=== PATIENT | female | born 1935 | race Caucasian/White ===

== ENCOUNTER 2017-05-26 09:06 | Emergency (ER) | payer MEDICARE, OTHER ==
[~2017-05-26] VITALS: Ht 157.5 cm; Wt 73.5 kg
[~2017-05-26 09:06] MED LIST: ADVIL200 MG PO; ALLEGRA180 MG PO; ENULOSE10 GM/15 M PO; HYDROCHLOROTHIA25 MG PO; ICAPS TABLET1 EACH PO; MARTINIC1 EACH PO; NORCO 7.5-3251 EACH PO; NUCYNTA100 MG PO; PRAVASTATIN SOD40 MG PO; VITAMIN D1000 UNI1 PO; VITAMIN E100 UNI1 PO; WELLBUTRIN SR150 MG PO; XARELTO10 MG PO; ZANTAC 7575 MG PO; ZESTRIL40 MG PO
--- OUTSIDE RECORDS SUMMARY | 2017-05-26 09:12 | XMS ---
Demographics + + + | Address | [address] | | | [place] [address] | + + + | Preferred Language | Unknown | + + + | Marital Status | Unknown | + + + | Sikhism Affiliation | Unknown | + + + | Race | Unknown | + + + | Ethnic Group | Unknown | + + + Author + + + | Author | [facility] | + + + | Organization | [facility] | + + + | Address | [address] [facility] [address] | | | [place] [phone] | + + + | Phone | | + + + Care Team Providers + + + + | Care Fender Finisher Name | Role | Phone | + + + + Unavailable | Unavailable | + + + + PROBLEMS +---------+ + + +--------+ + + | Type | Condition | ICD9-CM | [id number] | Onset | Condition | SNOMED | | | | Code | Code | Dates | Status | Code | +---------+ + + +--------+ + + | Problem | HTN | 401.9 | | | Active | [id number] | +---------+ + + +--------+ + + ALLERGIES Unknown Allergies SOCIAL HISTORY No smoking Hx information available PLAN OF CARE VITAL SIGNS MEDICATIONS Unknown Medications RESULTS No Results PROCEDURES No Known procedures IMMUNIZATIONS No Known Immunizations"
--- OUTSIDE RECORDS SUMMARY | 2017-05-26 09:12 | XMS ---
Demographics + + + | Address | [address] | | | [place] [address] | + + + | Preferred Language | Unknown | + + + | Marital Status | Unknown | + + + | Buddhist Affiliation | Unknown | + + + | Race | Unknown | + + + | Ethnic Group | Unknown | + + + Author + + + | Author | [facility] | + + + | Organization | [facility] | + + + | Address | [address] [facility] [address] | | | [place] [phone] | + + + | Phone | | + + + Care Team Providers + + + + | Care Manager Of Software Development Name | Role | Phone | + + + + Unavailable | Unavailable | + + + + PROBLEMS +---------+ + + +--------+ + + | Type | Condition | ICD9-CM | [id number] | Onset | Condition | SNOMED | | | | Code | Code | Dates | Status | Code | +---------+ + + +--------+ + + | Problem | HTN | 401.9 | | | Active | [id number] | +---------+ + + +--------+ + + ALLERGIES Unknown Allergies SOCIAL HISTORY No smoking Hx information available PLAN OF CARE VITAL SIGNS MEDICATIONS Unknown Medications RESULTS No Results PROCEDURES No Known procedures IMMUNIZATIONS No Known Immunizations"
[2017-05-26] MEDS ORDERED: ROBAXIN-750750 MG PO (09:28)
[2017-05-26] MEDS ORDERED: ULTRAM50 MG PO (09:29)
[2017-05-26] MEDS ORDERED: POTASSIUM CHLO10 MEQ PO (11:14)
--- NOTE | 2017-05-27 19:33 | EKG ---
[facility] [address] [place] [address] Signed Sinus rhythm with premature atrial complexes Low voltage QRS Borderline ECG When compared with ECG of 26-MAY-2017 09:36, (Unconfirmed) premature atrial complexes are now present Confirmed by BREE SHEA MD ([id number]) on 05/27/2017 7:33:14 PM Electronically Signed By: BREE SHEA MD 05/27/17 1933 PATIENT NAME: KERRY ST Electrocardiogram DATE OF : 39 PHYSICIAN: BREE SHEA MD REPORT #: [id number] REPORT IS CONFIDENTIAL AND NOT TO BE RELEASED WITHOUT AUTHORIZATION
--- NOTE | 2017-05-27 19:33 | EKG ---
[facility] [address] [place] [address] Signed Normal sinus rhythm Low voltage QRS Borderline ECG When compared with ECG of 29-JUL-2016 10:58, No significant change was found Confirmed by BREE SHEA MD ([id number]) on 05/27/2017 7:33:09 PM Electronically Signed By: BREE SHEA MD 05/27/17 1933 PATIENT NAME: KERRY ST Electrocardiogram DATE OF : 39 PHYSICIAN: BREE SHEA MD REPORT #: [id number] REPORT IS CONFIDENTIAL AND NOT TO BE RELEASED WITHOUT AUTHORIZATION
== END 2017-05-26 11:40 | disposition home or self-care (01) ==
LOC: ED 09:06
PROC: 0T9B70Z Drainage of Bladder with Drainage Device, Via Natural or Artificial Opening (ICD-10-PCS; principal; 2017-05-26)
DX: R41.0 Disorientation, unspecified (principal); E87.6 Hypokalemia; Z87.891 Personal history of nicotine dependence; Z88.5 Allergy status to narcotic agent; Z79.899 Other long term (current) drug therapy
CPT/HCPCS: 36415; 51701; 70450; 71045; 80053; 81001; 82140; 83735; 84484; 85025; 85610; 85730; 93005; 93010; 96360; 96361; 99284; J7030

== ENCOUNTER 2017-05-28 12:38 | Inpatient (IN) | payer MEDICARE, OTHER ==
[~2017-05-28] VITALS: Ht 157.5 cm; Wt 69.6 kg
[~2017-05-28 12:38] MED LIST changes: +POTASSIUM CHLO10 MEQ PO; +ROBAXIN-750750 MG PO; +ULTRAM50 MG PO
--- NOTE | 2017-05-28 16:23 | NUR ---
RECEIVED REPORT VIA TELEPHONE FROM TIMO MCKNIGHT IN ED. ALL QUESTIONS ANSWERED.
--- NOTE | 2017-05-28 17:36 | NUR ---
attempted IV 8 times with no success between several nurses. hospitalist notified. gave approval to attempt IV in dorsal bilat feet. if unsuccessful will notify hospitalist.
--- NOTE | 2017-05-28 17:37 | NUR ---
pt counting or making inappropriate comments frequently. only oriented to self. follows directions.
--- NOTE | 2017-05-28 17:38 | NUR ---
PT VERY CONFUSED. UNABLE TO GET IV ACCESS IN UPPER EXTREMITIES. HOSPITALIST AWARE. FOLLOWS SOME DIRECTIONS. LICKING SELF. BED ALARM ON. WILL NEED TO BE 1:1 PATIENT.
--- NOTE | 2017-05-28 18:03 | NUR ---
IV IN LEFT OLVERA PLACED BY ERINN MCKNIGHT. ALFRED BARRETO SITTING 1:1 WITH PATIENT. EATING DINNER NOW.
--- NOTE | 2017-05-28 18:40 | NUR ---
took pt to the BR. DO NOT GIVE PT TP SHE RIPS IT UP AND PUTS IT IN HER UNDERWEAR. GOT PT COCOLATE PUDDING AND SHE LIKES ICE WATER.
--- NOTE | 2017-05-28 18:42 | NUR ---
pt up to bathroom with CORONER'S JUROR. fixated on cleaning sink. redirected to bed and TV on. 1:1 staffing with patient continues. updated hospitalist.
--- NOTE | 2017-05-28 19:00 | NUR ---
BEDSIDE REPORT RECEIVED FROM JUAN LUIS NELSON. PT NOTED TO BE IMPULSIVE, BED ALARM VERIFIED ON, IVF INFUSING IN LEFT OLVERA WNL, COVERED IN GAUZE. PT IS SLEEPING AT THIS TIME, LIGHTS OFF IN ROOM, EYES CLOSED, RR 20, BREATHING NON-LABORED. PT WILL BE UNDER CLOSE OBSERVATION BY RN FOR SAFETY.
--- NOTE | 2017-05-28 19:28 | NUR ---
IN PT ROOM MONITORING PT, PT CONTINUES TO SLEEP, AWAKENS AT ONE POINT, REACHING ARMS STRAIGHT OUT, GRASPING FOR IV TUBING, MOVED TUBING OUT OF REACH. PT BACK TO SLEEP ON LEFT SIDE, PT COVERED ENTIRE HEAD WITH BLANKETS, RR 18, BREATHING IS NON-LABORED. LIGHTS OFF IN ROOM.
--- NOTE | 2017-05-28 21:35 | NUR ---
IN PT ROOM FOR CLOSE OBSERVATION. ASSISTED PT TO RESTROOM WITH STANDBY ASSIST, PT GAIT UNSTEADY, GRASPS FOR THINGS TO HOLD ONTO. PT FOLLOWED INSTRUCTIONS APPROPRIATELY, NON-CODING TEAM LEAD SOCKS APPLIED. PT IS ORIENTED TO PERSON, PLACE, NOT TO DATE. PT ABLE TO RECOLLECT TAKING TOO MANY MEDICATIONS, NOT FEELING LIKE HER SELF, STATES THAT HER POTASSIUM LEVEL WAS OFF AND SHE DID NOT HAVE ENOUGH "LIQUIDS" FOR REASON THAT SHE IS ADMITTED. PT MAKING INNAPPROPRIATE COMMENTS SUCH "I'M READY TO HAVE SEX, WE'RE ALL HORNY HERE". REORIENTED TO SITUATION AND CARE WE ARE PROVIDING. PT'S LUNGS SOUND CLEAR THROUGHOUT ALL LOBES. IV SITE INFUSING WNL, WRAPPED IN GAZE NO REDNESS, SWELLING NOTED AT INSERTION SITE. BOWEL TONES ARE ACTIVE, PT HAD SMALL SMEAR. ADEQUATE URINE OUTPUT. PT INSISTED ON CLEANING ELSY AREA MULTIPLE TIMES. LOTION APPLIED TO BACK BY RN. SCAB NOTED ON LEFT ELBOW, PT SCRATCHING AT SCAB, ALLEVYN DRESSING APPLIED. PT NOW BACK IN BED, BED ALARM IN PLACE. PT GIVEN SIPS OF WATER. RN WILL CLOSELY OBSERVE PT IN ROOM FOR SAFETY.
--- NOTE | 2017-05-28 22:06 | NUR ---
PT LYING IN BED, STATES SHE WOULD LIKE COFFEE. RN ASKED PT WHAT TIME IT WAS, PT STATES "8 AM". PT REORIENTED TO CURRENT TIME OF DAY, STATES SHE WOULD "LIKE WATER AND TO GO TO SLEEP THEN." LIGHTS OFF IN ROOM. PT CONTINUES TO SPEAK, COUNTING, TALKING ABOUT DR. BAH, DOSES OF MEDICATIONS. CONTINUES TO LICK FINGER, HANDS, RUBBING HANDS IN HAIR AND ON FACE AFTER LICKING. RN CLOSELY OBSERVING PT FOR SAFETY, BED ALARM SET, IVF W K INFUSING AT 200 ML/HR.
--- NOTE | 2017-05-28 22:27 | NUR ---
PT CONTINUING TO LICK, ASKED PT IF SHE NEEDED SOMETHING MORE TO DRINK, STATES "MY MOUTHS DRY." LEMON GLYCERIN SWAB GIVEN TO PT TO USE. PT STATES "MOUTH FEELS MUCH BETTER". PT NOW SLEEPING, EYES CLOSED, RR 18 BREATHING EQUALLY BILATERALLY, IVF INFUSING, BED ALARM IN PLACE.
--- NOTE | 2017-05-28 23:33 | NUR ---
PT SLEEPING, RR 20, IVF W K INFUSING AT 125 ML/HR. CLOSE OBSERVATION BY RN FOR PT SAFETY, BED ALARM SET.
--- NOTE | 2017-05-29 00:26 | NUR ---
PT CONTINUES TO SLEEP, EYES CLOSED, RR 16 AT THIS TIME, IVF INFUSING, CLOSE MONTIORING BY RN, BED ALARM IN PLACE.
--- NOTE | 2017-05-29 02:04 | NUR ---
IN PT ROOM FOR ASSESSMENT, PT DROWSY, SLIGHTLY AWAKENS TO VOICE, THEN BACK TO SLEEP. LUNGS CLEAR THROUGHOUT ALL LOBES, BOWEL TONES ACTIVE. IV SITE FLUSHED, WNL IVF W K INFUSING IN LEFT OLVERA AT 125 ML/HR. PT IMMEDIATELY BACK TO SLEEP AFTER ASSESSMENT, RR 18, 94% ON ROOM AIR. ATTENDS IN PLACE. CALL LIGHT IS IN REACH, BED ALARM SET. RN CLOSELY OBSERVING PT FOR SAFETY.
--- NOTE | 2017-05-29 02:50 | NUR ---
PT ATTEMPTING TO EXIT BED WITHOUT ASSISTANCE, EDUCATED PT, PT FOLLOWS COMMANDS, DOES NOT STAND UNTIL RN NEXT TO PT. PT IS VERY WEAK UPON AWAKENING, 2PA WITH GARBAGE TRUCK DISPATCHER AUGUST TO RESTROOM. PT HAD 200 ML VOID. PT DIAPHORETIC, SHEETS, GOWN CHANGED. IVF CONTINUES TO INFUSE WNL IN LEFT OLVERA. PT GIVEN SIPS OF WATER. PT IS NOW ALERT AND ORIENTED TO PERSON, PLACE, AND DATE. NOT ORIENTED TO EVENT. PT IS APPROPRIATE AT THIS TIME, ASKING QUESTIONS REGARDING REASON FOR VISIT, REMAINS LETHARGIC, EDUCATION PROVIDED. BED ALARM SET, CLOSE OBSERVATION BY RN.
--- NOTE | 2017-05-29 04:00 | NUR ---
ASSISTED PT TO RESTROOM FOR 350 ML VOID, PT GAIT UNSTEADY, AMBULATES WITH SBA, MINIMAL ASSIST AT THIS TIME. BACK TO BED, BED ALARM IN PLACE, RN IN ROOM FOR CLOSE OBSERVATION, IVF INFUSING WNL. PT GIVEN DRINKS OF WATER, STATES "I'M READY TO GO BACK TO SLEEP NOW".
--- NOTE | 2017-05-29 04:54 | NUR ---
PT RESTLESS, MOVING AROUND IN BED, PULLING AT GAUZE COVERING IV. EDUCATED PT ON IVF INFUSION, POTASSIUM. PT VERBALIZED UNDERSTANDING, DOES NOT WANT "ANY MORE BRUISES" WITH A NEW IV. IVF INFUSING WNL. CLOSE MONITORING OF PT BY RN, BED ALARM SET.
--- NOTE | 2017-05-29 05:41 | NUR ---
ASSISTED PT TO RESTROOM FOR 300 ML VOID. PT AMBULATED FAIR WITH SBA, GAIT UNSTEADY. PT LICKING FINGERS AND RUBBING FACE, GIVEN WET WASH CLOTH. PT DISCONTINUES LICKING FINGERS. PT IS PASSING GAS. ASSISTED PT BACK TO BED, ASSESSMENT COMPLETE. LUNGS CLEAR THROUGHOUT ALL LOBES, HR REGULAR, CSM INTACT. IV FLUID CONTINUES TO INFUSE WNL. PT STATES SOME TENDERNESS WITH PALPATION IN RLQ OF ABDOMEN, ABDOMEN IS SOFT, BOWEL SOUNDS ACTIVE X 4. PT IS RESTLESS, IN BED, IMMEDIATELY STATES "I FEEL LIKE I NEED TO PEE, BUT NOT SURE." PT GIVEN WARM BLANKET. RN IN ROOM FOR CLOSE OBSERVATION, BED ALARM IN PLACE.
--- NOTE | 2017-05-29 05:59 | NUR ---
PT RESTLESS FOR MOST OF NIGHT, UNABLE TO GET COMFORTABLE. IMPULSIVE REGARDING AMBULATION AND REACHING FOR SUPPORT WELL GETTING OUT OF BED. PT VERY LETHARGIC, REQUIRING 1PA WITH AMBULATION. PT IS ALERT, NOT ORIENTED TO EVENT, IS ORIENTED TO PERSON, PLACE, AND DATE. CONTINUES TO LICK HANDS AND RUB FACE, CLEANS BODY EXCESSIVELY WITH HANDS AND WASH CLOTHS OR WIPES WHEN SUPPLIED. PT IS COOPERATIVE, FOLLOWS COMMANDS WELL. IVF INFUSING LEFT OLVERA WNL THROUGHOUT SHIFT. PT HAS BEEN REORIENTED TO LEAVING GAUZE, IV IN PLACE MULTIPLE TIMES. VOIDING QUANTITY SUFFICIENT.
--- NOTE | 2017-05-29 06:17 | NUR ---
PT LYING IN BED, STATES "HEY, THERES A COW OUT THERE AND COWS HAVE CALVES, AND PIGS HAVE PIGLETS." PT IS DROWSY, SPEECH IS GARBLED. LIGHTS OFF IN ROOM. PT COVERED UP, ENCOURAGED PT TO REST. IVF INFUSING AT 125 ML/HR. BED ALARM SET, RN REMAINS IN ROOM FOR CLOSE OBSERVATION.
--- NOTE | 2017-05-29 07:00 | NUR ---
REPORT GIVEN FROM BRADY MCKNIGHT. PATIENT RESTING IN BED. INTRODUCED TO PATIENT. STEVENNET AT THE TIME OF REPORT WAS WASHING AND REWASHING FACE. INFORMED PATIENT THAT I WOULD BE HER NURSE TODAY. PATIENT AGREED AND WAS PLEASANT AT THIS TIME.
--- NOTE | 2017-05-29 07:33 | NUR ---
PATIENT STATED THAT SHE NEEDED TO GO TO THE BR. PATIENT WAS A ONE ASSIST TO EDGE OF BED. PATIENT WHILE SITTING ON EDGE OF BED WAS ABLE TO TELL ME HER NAME, MONTH, AND YEAR. SHE WAS ABLE TO TELL ME THAT SHE WAS AT THE HOSPITAL IN [facility]". PATIENT STATING "SHE WAS HER DUE TO THE DOCTOR GIVING HER TOO MUCH POTASSIUM AND THAT HE WHY SHE IS CRAZY AT THIS TIME". PATIENT ASSISTED TO THE BR WITH ONE ASSIST. VOIDING CLAR YELLOW URINE. PATIENT VERY INTERESTED IN WASHING SELF. ASSISTED TO THE SKIN FOR MORNING CARES. TEETH BRUSHED. HAIR COMBED AND FACE WASHED. ASSISTED TO THE CHAIR. PATIENT SET UP TO WATCH TV AND DRINK COFFEE IN CHAIR. ORDERED BREAKFAST.
--- NOTE | 2017-05-29 08:00 | NUR ---
PATIENT IS A ONE ON ONE, RN IN ROOM. WHITEBOARD UPDATED, ROOM TIDIED.
--- NOTE | 2017-05-29 08:36 | NUR ---
PATIENT SAT IN THE CHAIR AND TOLERATED 100 PERCENT OF BREAKFAST. ASSISTED TO BR AFTER BREAKFAST. PT VOIDED AND HAD SMALL BM. PATIENT WANTITNG TO PLACE WET TOILET PAPER IN ATTENDS. HAD TO CONTINUE TO REINFORCE THAT WE DONT NEED TO DO THAT HERE. ASSISTED TO BED. PATIENT CONTINUING TO BE UNSTEADY ON FEET, BUT TOLERATING A 1 PERSON ASSIST.
--- NOTE | 2017-05-29 08:47 | NUR ---
PATIENT RESTING IN BED. RR EVEN AND UNLABORED. PATIENT FEEL ASLEEP VERY QUICKLY. PATEINT UPDATED ABOUT GIVING NEW ORDER FOR IV MAGNESSIUM. PATIENT STATING OKAY AND THEN WENT BACK TO SLEEP. IV MAG STARTED. FLUSHED L OLVERA IV. FLUSHING WNL.
--- NOTE | 2017-05-29 09:13 | NUR ---
PATIENT CONTINUE TO WIPE FACE AND EARS WITH WET WIPES. STATING, " I HAVE TO CLEAN SELF BECAUSE THE INFECTION. " IF SHE DOES NOT HAVE WIPES IN HER HANDS TO WASH FACE PATIENT LICKS HER FINGERS AND WIPES FACE.
--- NOTE | 2017-05-29 09:45 | NUR ---
mehdi continues to wash face. talking around about living in [place]. reminding patient to not lick herself. patient is becoming more confusing and unable to state where she was or the date.
--- NOTE | 2017-05-29 10:16 | NUR ---
patient enjoys washing her face. easy to redirect
--- NOTE | 2017-05-29 11:11 | NUR ---
magnessium finished. patient tolerated well. iv flushed. tolerated flush. patient assisted to the br. patient voided and had small soft bm. patient ambulated in the cortes with stby assist and walker. tolerated well. needed frequent direction. pateint wanted to go into other patients rooms. asking " where is norm" stating " i am hotter than a firecracker" " i need norm" [facility] attempt to re[facility].
--- NOTE | 2017-05-29 11:37 | NUR ---
rounded with dr. hackett. plan to given another dose of seraqueal. patient oriented to self and location. unable to state year or that she was at the hospital. warm blanket given to patient. patient [place] snacks given to patient.
--- NOTE | 2017-05-29 12:35 | NUR ---
family in room. family brought in medication pharmacy brought to room to assist in helping with med list and reaction.
--- NOTE | 2017-05-29 13:30 | NUR ---
FAMILY LEFT. ASSISTED BACK TO BED WITH A ONCE ASSIST AND WALKER. PLACED IN BED. BED ALARM IN PLACE.
--- NOTE | 2017-05-29 14:36 | NUR ---
patient assisted to the br. patient voided. taking a lot of encouragement to get out of bathroom. patient stating that she was needing to cover everything with water. attempting to wipe everything down with wet paper towel. assisted patient in ambulate in the cortes. patient was calling out in the cortes for norm. patient saying in appropriate things. assisted back to room. patient told that she was being inappropriate and she just laughed. assisted back to bed. patient agreed that she needed to take a nap. patient continues to wipe face with wet cloth. talking about random things. counting. and continuing to be hypersexual. cont to attempt to reorient.
--- NOTE | 2017-05-29 15:46 | NUR ---
patient assisted to the br. unable to sleep. talking randomly. continue to wash self with cloth. patient given fresh water.sat up in bed. patient keeps eyes closed but does not stop moving. pt c/o being cold and then hot. flushed l jiménez iv. flushing well. cont to be sl
--- NOTE | 2017-05-29 17:27 | NUR ---
PATIENT ASSISTED TO THE CHAIR FOR DINNER. TOLERATING TRANSFER WITH A STBY ASSIST AND WALKER. NEEDING DIRECTION. PATIENT STATING SHE IS SO HUNGERY. NEEDING REMINDED TO SLOW DOWN WHILE EATING. SON CAME INTO SAY TO PATIENT. FOR DINNER AND ASSESSMENT PATIENT WAS ORIENTED TO SELF, AND LOCATION. SHE KNEW SHE WAS IN THE HOSPITAL IN [place]. PATIENT WHILE SITTING IN THE CHAIR HAS STOPPED WITH THE WASHING OF HER FACE. PATIENT ATTEPTING TO ASK DIETARY STAFF TO KISS HER. REMAINS HYPERSEXUAL WITH ANY MALE WORKER. DOES BETTER WITH FEMALE STAFF
--- NOTE | 2017-05-29 17:35 | NUR ---
PATIENT HAS BEEN A 1:1 ALL DAY. CONT. TO WASH SELF WITH WET CLOTH OR BABY WIPE. IF PT HAS WET CLOTH TO WASH HERSELF SHE DOES NOT LICK. UP IN CHAIR FOR ALL MEALS. AMBULATED MULTIBLE TIMES IN SPRINGER. PATIENT NEEDS CONSTANT DIRECTION WHILE IN SPRINGER AND IN ROOM. TOLERATING 100 PERCENT OF ALL MEALS. VOIDING WELL. HAD MULTIPLE BMS TODAY. PATIENT ORIENTATION CHANGES. THIS MORNING MORE ORIENTED THAN THIS EVENING. CAN TELL ME HER NAME AND LOCATION. CONTINUES TO BE BE FIXATED ON HYPERSEXUAL LANGUAGE.
--- NOTE | 2017-05-29 18:35 | NUR ---
PATIENT FINISHED 100 PERCENT OF DINNER. SITTING IN CHAIR. WASHING FACE WITH WET CLOTH. WATCHING TV AT THIS TIME. CHAIR ALARM IN PLACE.
--- NOTE | 2017-05-29 18:54 | NUR ---
PATIENT ASSISTED TO THE BR. TOLERATED WELL ASSISTED BACK TO BED. PATIENT WHILE IN THE BR. WASHED FACE, BRUSHED TEETH, AND DID A SMALL BED BATH. PATIENT DOING ALL CARES HERSELF. ASSISTED BACK TO BED WITH BED ALARM ON.
--- NOTE | 2017-05-29 19:46 | NUR ---
RECIEVED REPORT FROM BERTHA MCKNIGHT. PT AT HIS TIME WAS 05/16. PT WAS ABLE TO STATE NAME, DATE, AND WHERE SHE WAS. DENIES ANY NEEDS AT THIS TIME. PT IS A STAND BY ASSSIST AT THIS TIME. [facility] 05/16 AT BEDSIDE.
--- NOTE | 2017-05-29 21:02 | NUR ---
PT WALKED ONE LAP AROUND MS USING A WALKER. PT ASSISTED BY HAND LAMINATOR.
--- NOTE | 2017-05-29 21:24 | NUR ---
PT DROWSY IN BED. CONTINUALY CLEANING FACE WITH RAG. PT WAS DISORIENTED TO TIME STATIN," SHE WAS 20 AND IT WAS 1930." PT IS RAMBLING. NO NEEDS AT THIS TIME GAVE. SEROQUIL FOR BEDTIME.
--- NOTE | 2017-05-29 23:23 | NUR ---
PT IS SLEEPING IN BED. RESPITRATIONS EQUAL AND UNLABORED. VISIBLE FROM NURSES STATION. CALL LIGHT WITHING REACH.
--- NOTE | 2017-05-30 00:53 | NUR ---
PT EYES CLOSED AND APPEARS TO BE SLEEPING. RESIRATIONS EQUAL AND UNLABORED. PT LAYING ON BACK COVERED UP IN BED. CALL LIGHT WITHIN REACH. PT VISABLE FROM NURSES STATION. NO NEEDS AT THIS TIME.
--- NOTE | 2017-05-30 02:15 | NUR ---
pt appears to be asleep. respirations equal and unlabored. covered up. call lgiht withing reach. visable from nursing station.
--- NOTE | 2017-05-30 03:13 | NUR ---
PT ASSISTED TO BATHROOM. WARMING MEASURES APPLIED X2. PT NOW SLEEPING.
--- NOTE | 2017-05-30 04:00 | NUR ---
pt sleeping. rr wnl. call light within reach. visible from nursing station.
--- NOTE | 2017-05-30 06:16 | NUR ---
PT SLEPT THROGHOUT THE NIGHT. UP @ 0600. STILL DISORIENTED TO TIME AND SITUATION. SEXTUAL AND INAPROPRIATE TALK. SBA WITH FWW. REGULAR DIET. 1 ON 1.
--- NOTE | 2017-05-30 07:15 | NUR ---
RECIEVED BEDSIDE REPORT FROM JUAN LUIS RAY. PT IN BED, AWAKE, AWARE THAT SHE IS IN [facility]. SPITTING ON HANDS AND RUBBING SPIT ON ARMS AND HANDS. MARY LOU UP IN ROOM WITH PT 1:1, REDIRECTED FROM THIS ACTIVITY MULTIPLE TIMES, OFFERED WET WASHCLOTH, PT USED TO CLEANSE HANDS AND ARMS. PT ALSO OFFERED LOTION, WHICH SHE APPLIED TO HANDS AND ARMS.
--- NOTE | 2017-05-30 08:47 | NUR ---
FRESH ICE WATER SET UP FOR BRK. COFFEE. GAVE A SHOWER. TOOK PT FOR A WALK. PT WILL NOT STOP LICKING HERSELF. ALSO SHE WONT STOP CALLING PEOPLE A SHMUCK.
--- NOTE | 2017-05-30 09:18 | NUR ---
TALKED WITH PT DAUGHTER TRISTIN ABOUT HER MOTHER AND WHAT THEY WANTED TO DO. WE SET UP TIME TO MEET AT 10 DENIS TO DISCUSS THE PLAN OF CARE WITH HER SHE FEELS HER MOTHER IS NOT ABLE TO RETURN HOME AGAIN.
--- NOTE | 2017-05-30 09:44 | NUR ---
TOOK PT TO BR. TOOK PT ON A WALK WITH HERMINIO RATLIFF. AND WE WENT TO THE PT ROOM PT IS A LITTLE TIRED NOW SO SHE IS RESTING IN BED.
--- NOTE | 2017-05-30 10:16 | NUR ---
PT IN BED, EYES CLOSED, CONTINUES TO LICK FINGERS AND HANDS AND WIPE THE SALIVA ON THESE ONTO HER FACE, EARS, ARMS DESPITE ATTEMPTS AT VERBAL REDIRECTION, DISTRACTION, AND PROVIDING ALTERNATIVES. MARY LOU SIMON IN ROOM WITH PT 1:1 STAFF.
--- NOTE | 2017-05-30 10:38 | NUR ---
MET WITH PT DAUGHTER TRISTIN AND WITH PTS SON MANFRED AND HIS JOSEE. PT WAS IN ROOM ATTEMPTING TO REMOVE HER CLOTHING AND RUBBING HERSELF ALL OVER. MAKING INAPPROPRIATE GESTURES AND VERBAGE. TALKING TO THE ADULT CHILDREN OF THIS PT AND THE SON STATES THAT WE BROUGHT MOM TO THE ER BECAUSE SHE WAS THREATENING ME--SHE SAID SHE WAS GOING TO KILL ME. TOLD ME SHE HAD GIVEN MY DOG A PILL THAT WAS GOING TO KILL IT. AND REAL RECENTLY HER OWN DOG HAD - NO ONE AWARE OF THOSE CIRCUMSTANCES. WE TALKED FOR A LITTLE ABOUT THE PT ABILITY TO PAY FOR PLACEMENT IN A FACILITY THAT DOES NOT ACCEPT MEDICARE. THEY SAID SHE HAS NO MEANS TO PAY IF MEDICARE DOESN'T COVER AND HER [employer]IG[employer] DOESN'T PICK IT UP. SO WE TALKED ABOUT GETTING THE PAPERWORK GATHERED UP TO CHECK HER ELIGIBILTY FOR MEDICAID.
--- NOTE | 2017-05-30 11:19 | NUR ---
PT SITTING UP IN RECLINER. TAHIR BE, REMOTE ADVISOR, AND PT'S SON AND DAUGHTER IN ROOM, DISCUSSED PLAN OF CARE FOR PT. PT REMAINS DISORIENTED, AND CONTINUES TO REPETATIVELY LICK FINGERS AND WIPE SALIVA ON FACE, ARMS, EARS, GROIN AREA. MARY LOU SIMON IN ROOM WITH PT 1:1, IS ATTEMPTING TO REDIRECT, AND DISTRACT FROM THIS ACTIVITY.
--- NOTE | 2017-05-30 11:21 | NUR ---
TOOK PT TO BR. 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 THEN SHE PUTS HER FINGER IN HER MOUTH AND THEN INTO HER VAGINA THEN BACK IN HER MOUTH. I AM TRYING TO WIPE HER FINGERS EVERY TIME. PT IS STATING SHE IS VERY TIRED AND HAS HER EYES CLOSED THE WHOLE TIME INLESS YOU TELL HER TO OPEN THEM. BUT SHE WILL NOT SLEEP WHEN SHE IS IN THE BED. KEEPS LICKING HERSELF.
--- NOTE | 2017-05-30 13:22 | NUR ---
NOTED DOCUMENTED BP OF 182/70. THIS RN TOOK MANUAL BP, 170/68. PT LAYING IN BED WITH EYES CLOSED, BUT AWAKE, STILL LICKING FINGERS, AND RUBBING THEM ON HER FACE.
--- NOTE | 2017-05-30 13:25 | NUR ---
TALKED WITH Innovega ABOUT THIS PT, WITH REGARD TO HER THREATS TO HER SON. THEY ARE SENDING A RESOURCE ROOM TEACHER UP HERE TO TALKE WITH PT.
--- NOTE | 2017-05-30 13:58 | NUR ---
PT HAS RUBBED AND PUT SLIVA ON HER FACE SO MUCH THAT SHE NOW HAS A SOAR IN FRONT OF HER LEFT EAR. PT STATED THAT HER FACE IS BURNNIG WE HAVE BEEN ALTERNATING WASHCLOTH, WIPES, LOTION AND THEN NOTHING. BUT WHEN SHE HAS NOTHING TO DO WITH HER HANDS SHE SPITS ON THEM AND THEN RUBBS THEM ALL OVER HER FACE AND BEHIND HER EARS.
--- NOTE | 2017-05-30 14:33 | NUR ---
TOOK PT TO THE BR.
--- NOTE | 2017-05-30 14:34 | NUR ---
TOOK PT ON A WALK 3 TIMES AROUND MS.
--- NOTE | 2017-05-30 14:38 | NUR ---
[facility] HOD CARRIER HERE TALKING WITH MYSELF AND DR ANAYA AND SOON TO BE PT.
--- NOTE | 2017-05-30 15:20 | NUR ---
YAJAIRA DAVID COUNTER TOP ASSEMBLER WAS IN TO ASSESS PT, AND REQUESTED RECORDS FOR PLACEMENT IN A GERIATRIC PSYCH FACILITY. THIS RN VERRIFIED WITH TAHIR Chatterjee PAYROLL MANAGER THAT IT WAS OK TO GIVE JUAN A RANDALL THE REQUESTED RECORDS. TAHIR STATED THAT IT WAS OK TO GIVE THE REQUESTED RECORDS FOR PLACEMENT PURPOSES. THIS RN GAVE YAJAIRA DAVID COUNTER TOP ASSEMBLER REQUESTED RECORDS: HISTORY AND PHYSICAL, LAB AND IMAGING REPORTS, EMERGENCY ROOM REPORT.
--- NOTE | 2017-05-30 16:29 | NUR ---
PT IN BED, FAMILY AT BEDSIDE, WELL ALFRED, PRECISION ASSEMBLER BENCH. PT DENIED PAIN. DENIED NEEDS AT THIS TIME. REMAINS DISORIENTED TO TIME, DATE, SURROUNDINGS, PLACE.
--- NOTE | 2017-05-30 16:51 | NUR ---
HELPED PT TO THE BR. SBA. GAUDENCIO IN PT SAID PT DID NOT NEED A WALKER. BUT I HAVE BEEN USING IT TO HELP WITH WALKING IN AROUND MS. PT IS VERY TIRED BUT WILL NOT STOP TAKING TO LET HERSELF GO TO SLEEP.
--- NOTE | 2017-05-30 17:23 | NUR ---
Medications reconciled using RX records and family interview
--- NOTE | 2017-05-30 18:00 | NUR ---
PT HAS BEEN DISORIENTED THROUGHOUT SHIFT, WITH FREQUENT REPETATIVE BEHAVIORS, INCLUDING LICKING FINGERS AND SMEARING SALIVA ON HER BODY, ESPECIALLY HER FACE. PT ALSO COUNTED REPETATIVELY, AND MADE SEXUAL COMENTS TO STAFF. PT DISORIENTED TO PLACE, EVENTS, DATE, SURROUNDINGS AT TIMES, AND HER . PT UP WITH 1 PERSON ASSIST. AT TIMES REQUIRES REDIRECTION TO LEAVE HOSPITAL GOWN. WAS SEEN BY [facility] CRISIS COUNSELOR THIS SHIFT. HAD 2 BOWEL MOVEMENTS THIS SHIFT. HAS DENIED PAIN THROUGHOUT SHIFT.
--- NOTE | 2017-05-30 19:44 | NUR ---
RECEIEVED REPORT FROM THERESA, PT IS A 1-1 AT THIS TIME. MAKING NOHEMI STATMENTS SUCH "MAGDALENA GET IN HERE I'M HOTTER THAN A FIRECRACKER." PT IS SITTING IN CHAIR RUBBING LOTION ON FACE AND ARMS. PT WAS GIVEN WATER WHICH SHE IS NOW RUBBING IN HER HAIR. PT IS ALERT AND KNOWS HER NAME AND THAT SHE IS IN [place]. WILL CONTINUE TO MONITOR PATIENT 1-1.
--- NOTE | 2017-05-30 20:27 | NUR ---
PT IS AWAKE IN BED WATCHING TV, PT IS 1-1 D/T CONFUSION AND INAPPROPRIATE BEHAVIOR. PT CONTINUES TO RUB WATER ON HER FACE AND HAIR- IF NO WATER IS AVAILABLE PT WILL LICK HER HANDS AND RUB THEM ON HER FACE AND HAIR. IV IN LEFT FOOT IS SL AND FLUSHED. PER REPORT PT WILL NOT KEEP ID BAND, FALL BRACLET, AND ALLERGY BRACLET ON. MEDICATIONS GIVEN AND PT VERIFIED NAME AND . PT HAS FRESH WATER AT BEDSIDE AND NO FURTHER REQUESTS AT THIS TIME.
--- NOTE | 2017-05-30 20:35 | NUR ---
PATIENTS VITALS TAKEN AND RECORDED. PATIENT ASSISTED TO THE RESTROOM. PATIENT IS A SBA W/FWW AND IS STEADY ON HER FEET. PATIENT IS NOW BACK IN BED RESTING. PATIENTS SIDE RAILS ARE UP AND BED ALARM ON. PATIENT IS A 1:1 AT THIS TIME.
--- NOTE | 2017-05-30 21:07 | NUR ---
PATIENT ASSISTED TO THE RESTROOM. PATIENT IS A SBA W/FWW. PATIENT WAS ABLE TO VOID AND HAVE A BM. PATIENT IS NOW BACK IN BED. ALL BED RAILS UP AND BED ALRM ON. PATIENT REMAINS A 1:1 AT THIS TIME.
--- NOTE | 2017-05-30 22:19 | NUR ---
PATIENT CONTINUES TO LICK HERSELF AND MAKE SEXUAL REFRENCES. PRN SLEEP AID GIVEN PER ORDER. PATIENT IS RESTING IN BED. ALL RAILS UP AND BED ALARM ON FOR SAFETY. CALL LIGHT IN REACH.
--- NOTE | 2017-05-30 23:20 | NUR ---
PATIENT ASSISTED O THE RESTROOM. PATIENT IS A SBA W/FWW. PATIENT BACK IN BED RESTING. ALL RAILS UP AND BED ALARM ON. PATIENT ATE X2 CHOCOLATE PUDDING CUPS. PATIENTS CALL LIGHT IN REACH.
--- NOTE | 2017-05-31 00:33 | NUR ---
PATIENT IS RESTING IN BED WITH EYES CLOSED. RR17. RAILS UP AND BED ALRM ON FOR SAFETY. CALL LIGHT IN REACH.
--- NOTE | 2017-05-31 01:18 | NUR ---
PATIENT ASSISTED TO THE RESTROOM. PATIENT IS A SBA W/FWW. PATIENT IS AGITATED AND DEMANDING COFFEE. PATIENT STATED "IF I DONT GET COFFEE, I WILL THROW THINGS AT YOU" PATIENT GIVEN DECAF COFFEE. PATIENT IS NOW IN RESTING IN RECLINER. CHAIR ALARM IS ON. PATIENT IS ONLY TO VERBALIZE THATSHE IS IN [place]. PATIENT REORIENTED TO TIME, DATE, PLACE, AND SURROUNDINGS. CALL LIGHT IN REACH.
--- NOTE | 2017-05-31 03:20 | NUR ---
PATIENT ASSISTED TO THE RESTROOM. PATIENT IS A SBA W/FWW. PATIENT WAS ABLE TO VOID. PATIENT IS NOW IN THE RECLINER W/CHAIR ALARM IN PLACE. CALL LIGHT IN REACH.
--- NOTE | 2017-05-31 04:34 | NUR ---
PATIENT WAS NOT ABLE TO REST DURING THE SHIFT. PATIENT CONTINUES TO LICK HERSELF AND OTHER OBJECTS IN THE ROOM. PATIENT IS ONLY ABLE TO STATE THAT SHE IS IN [place]. PATIENT IS ONLY OREINTED TO SELF. PATIENT IS A 1:1 FOR SAFETY. PATIENT IS IMPULSIVE. PATIENT IS ON A REGULAR DIET AND HAS A GOOD APPETITE. PATIENT IS SL IN HER FOOT. PATIENT IS A SBA W/FWW. PATIENT DOES NOT USE CALL LIGHT. PATIENT IS ON RA.
--- NOTE | 2017-05-31 05:11 | NUR ---
PATEINTE ASSISTED TO THE RESTROOM. PATIENT IS A SBA W/FWW. PATIENT WAS ABLE TO VOID AND HAD A SMALL BM. PATIENT IS NOW BACK IN BED RESTING. BED RAILS UP AND BED ALARM ON FOR SAFETY. PATIENTS VITALS TAKEN AND RECORDED. PATIENT GIVEN FRESH WATER. PATIENTS CALL LIGHT IN REACH.
--- NOTE | 2017-05-31 06:39 | NUR ---
PATIENT CONTINUES TO REST IN THE RECLINER. PATIENTS CHAIR ALARM REMAINS ON FOR SAFETY. CALL LIGHT IN REACH. PATIENT CONTINUES TO LICK SELF AND TV REMOTE.
--- NOTE | 2017-05-31 07:41 | NUR ---
PT SITTING UP IN RECLINER, EATING BREAKFAST. DENIES PAIN. IS ORIENTED TO BEING IN "[facility]", ORIENTED TO SELF AND DATE OF . ORIENTED TO WHO THE [place]IDENT OF [place] IS, DISORIENTED TO EVENTS, DATE.
--- NOTE | 2017-05-31 09:05 | NUR ---
TALKED WITH PATIENTS DAUGHTER TRISTIN ON THE PHONE IN REGARDS TO PLAN FOR PLACEMENT. TRISTIN SAID SHE KNEW THE HOSPITAL HAS BEEN LOOKING OFR PLACEMENT, BUT DIDNT KNOW PLACEMENT HAD BEEN FOUND. RN SAID TO TRISTIN THAT PLACEMENT IS NOT 100% CONFIRMED, AT THIS TIME. HOWEVER, PLACEMENT IS PROMISING FOR TODAY TO [facility].
--- NOTE | 2017-05-31 11:01 | NUR ---
PATIENT IS A ONE ON ONE. DOES NOT CALL APPROPRIATELY. GETS OUT OF BED AND SETS BED ALARM OFF TO GO TO BATHROOM. 1PA WITH FWW.
--- NOTE | 2017-05-31 12:29 | NUR ---
PT IN RECLINER. ATE 100% OF LUNCH AND REQUESTED MORE. ORDERED EGG SALAD SANDWICH FOR PT PER PT'S REQUEST. PT'S SON AND DAUGHTER IN PT'S ROOM. PT LICKING FINGERS, RUBBING SALIVA ONTO FACE, EARS, AND ARMS. REDIRECTED PT TO USE CLEANSING CLOTH, WHICH PT DID. PT ALERT, ORIENTED TO PRESIDENT OF [facility], , THAT SHE IS IN [facility]. DISORIENTED TO EVENTS, HER DATE OF , FAMILY MEMBERS NAMES.
--- NOTE | 2017-05-31 13:05 | NUR ---
PT SON STATED THAT HIS MOM WANTED JIHANTaty TACHOJAKUB. I LET HIM KNOW THAT YES SHE IS N A REGULAR DIET AND HE CAN GET IT FOR HER. BUT HE WILL NEED TO GIVE HER LITTLE AMOUNTS AT A TIME BECAUSE SHE EATS SO FAST WE DONT WANT HER TO CHOCK ON IT.=
--- NOTE | 2017-05-31 13:06 | NUR ---
PATIENT UP TO BATHROOM WITH STANDBY ASSIST WITH FWW. GOWN CHANGED. PATIENT BACK TO BED WITH WARM BLANKET. FRESH ICE WATER GIVEN. BED ALARM ON.
--- NOTE | 2017-05-31 13:07 | NUR ---
PT IN BED. ATE 100% OF EGG SALAD SANDWICH. IS NOW RESTING QUIETLY WITH EYES CLOSED. BED ALARM ON, CURTAIN AND DOOR OPEN.
--- NOTE | 2017-05-31 14:00 | NUR ---
DR ANAYA HAD NOTIFIED ME THAT [facility] WOULD NOT TAKE THE PT THEY BELIEVE IT IS A MEDICATION INDUCED DELIRIUM. DR ANAYA STATES NO SHE FEELS IT IS OCD THAT IS THE PROBLEM. EITHER WAY, I CALLED JUAN A RANDALL AT [facility] THIS AM AND STATED THAT [facility] WOULD NOT TAKE HER BECAUSE THEY DO NOT BELIEVE IT IS A PYSCH ISSUE THEY FEEL IT IS MEDICAL. HE SAID HE WAS GOING TO ATTEMPT TO GET AHOLD OF DR FRIEND.
--- NOTE | 2017-05-31 14:14 | NUR ---
PATIENT IS IN BED CURRENTLY. SLEEPING SOUNDLY. WILL GET VS AND I/O'S WHEN PATIENT WAKES UP. RN IS AWARE. PATIENT HAD TWO LUNCHES, ATE ALL OF BOTH.
--- NOTE | 2017-05-31 14:56 | NUR ---
PT IN BED, AWAKE, ORNAMENT MAKER HAND JOSHUA TAKING VS. NO S/S DISTRESS OR DISCOMFORT AT THIST TIME.
--- NOTE | 2017-05-31 15:46 | NUR ---
PATIENT FEELS LIKE SHE NEEDS TO HAVE BM BUT CAN'T. HAS HAD 3 SMALL, FORMED BM'S TODAY ALREADY. KEEPS TRYING TO GET UP TO GO TO BATHROOM
--- NOTE | 2017-05-31 16:52 | NUR ---
PATIENT KEEPS TRYING TO EAT TOILET PAPER, PAPER TOWELS, AND NAPKINS. I HAVE MANAGED TO GET HER TO SPIT THEM OUT BEFORE SHE ACTUALLY SWALLOWS THEM THOUGH
--- NOTE | 2017-05-31 17:06 | NUR ---
GOT PATIENT INTO CHAIR FOR DINNER. TRAY IN FRONT OF HER. RN AND I BOTH TOLD HER SHE COULDN'T WASH HER FACE ANY MORE THERE WERE SPOTS THAT WERE BLEEDING.
--- NOTE | 2017-05-31 17:29 | NUR ---
PT AGITATED, PACING AROUND ROOM, RUBBING FACE FORCEFULLY WITH WASHCLOTH AND FINGERS. PT'S CHILDREN WERE IN ROOM WITH PT, ATTEMPTED TO REDIRECT PT VERBALLY, PT BECAME MORE AGITATED, YELLING AT CHILDREN. PT'S DAUGHTER AND SON LEFT. PT REMAINS AGITATED, UNABLE TO SIT STILL, PACING IN ROOM, FORCEFULLY RUBBING FACE WITH FINGERS, SHOVING TRAY TABLE AWAY FROM HER. DR. ANAYA STATED THAT 2100 DOSE OF HALDOL 5 MG COULD BE GIVEN EARLY, NOW. NOTIFIED CALOS, PHARMACIST.
--- NOTE | 2017-05-31 17:50 | NUR ---
PT'S BP 171/71, PT HAD BEEN AGITATED. NOTIFIED DR. ANAYA OF THIS ELEVATED BP VALUE. NO NEW ORDERS AT THIS TIME.
--- NOTE | 2017-05-31 17:51 | NUR ---
PATIENT HAS HAD SEVERAL EPISODES OF AGITATION. UNABLE TO BE REDIRECTED OR REORIENTED. PATIENT SCRATCHED MARY LOU SIMON WHEN ALFRED TRIED TO TURN OFF HOT WATER SO THE PATIENT DIDN'T GET BURNED. PATIENT WAS TRYING TO CLEAN BATHROOM AND EAT WET PAPERTOWELS.
--- NOTE | 2017-05-31 17:55 | NUR ---
PATIENT IS SHOUTING INTO THE HALLWAY THAT I NEED TO "GET MY BUTT IN THERE" OR SHE'S GOING TO SLAP ME IN THE MOUTH BECAUSE I AM HER DAUGHTER. SHE'S CALLING ME ANDREINA. PATIENT IS STILL VERY AGITATED, HOWEVER SHE HELD STILL FOR ME TO GET HER VITAL SIGNS.
--- NOTE | 2017-05-31 18:04 | NUR ---
PT REMAINS DISORIENTED TO VARRYING DEGREES THIS SHIFT, AT ONE POINT ORIENTED TO SELF, , YEAR, SURROUNDINGS, PLACE, AND PRESIDENT OF [facility], AND ANOTHER POINT ORIENTED TO SELF, PLACE, DISORIENTED TO HER , PRESIDENT, FAMILY. REORIENTED FREQUENTLY. PT CONTINUES TO ENGAGE IN REPETATIVE BEHAVIORS, LICKING FINGERS THEN RUBBING SALIVA ON FACE, ARMS, AND REST OF BODY, ALSO COUNTING REPETATIVELY, REPEATEDLY WASHING FACE AND HANDS WITH WASHCLOTH. PT HAS BEEN CLOSELY MONITORED BY MARY LOU LEWIS FROM NURSES' STATION THROUGHOUT SHIFT. BED AND CHAIR ALARM WERE USED THROUGHOUT SHIFT. IS CURRENTLY IN BED. HAD BM X 4, SMALL FORMED THIS SHIFT. LUNGS CTA, BOWEL TONES ACTIVE X 4 QUADRANTS. URINE OUTPUT QUANTITY SUFFICIENT. PT BECAME AGITATED THIS EVENING, YELLING AT FAMILY AND STAFF, GRABBED MARY LOU, ALFRED AND SCRATCHED HER HAND, HALDOL 5 MG PO GIVEN EARLY PER DR. ANAYA.
--- NOTE | 2017-05-31 19:18 | NUR ---
RECEIVED REPORT ON PT, SHE IS AWAKE IN BED AND CONTINUING TO LICK HER FINGERS AND RUB HER FACE. SHE IS COOPERATIVE AT THIS TIME. PT HAS NO IV SITE, BED ALARM IS ON AND CALL LIGHT IS WITHIN REACH. PT IS BEING WATCHED FROM HALLWAY BY MANUFACTURING COST ESTIMATOR. PT HAS NO REQUESTS AT THIS TIME.
--- NOTE | 2017-05-31 19:35 | NUR ---
NOTIFIED DR. ANAYA THAT PT'S IV INFILTRATED, AND WAS D/C'D. RECIEVED TORB THAT IT IS OK TO LEAVE IV OUT.
--- NOTE | 2017-05-31 21:45 | NUR ---
PT IS AWAKE IN BED WATCHING TV AND PRESSING BUTTONS ON BED. HELPED PT TO RESTROOM AND BACK TO BED. ASSESSMENT COMPLETE, PT HAS NO IV SITE, RESPIRATIONS REGULAR ON ROOM AIR. EVENING MEDICATIONS WERE GIVEN. PT HAS NO REQUESTS AT THIS TIME.
--- NOTE | 2017-05-31 22:57 | NUR ---
PATIENT AMBULATED X2 IN THE HALLWAY. PATIENT IS BACK IN BED SITTING ON THE EDGE OF THE BED. PATIENT IS EATING A SNACK. PATIENT COMPLAINS OF A HEADACHE. PATIENT GIVEN PRN TYLENOL. PATIENTS BED ALARM IS ON. PATIENT CONTINUES TO REQUIRE CLOSE OBSERVATION. CALL LIGHT IN REACH.
--- NOTE | 2017-06-01 00:23 | NUR ---
PATIENT IS RESTING IN BED WITH EYES CLOSED. BREATHING IS EVEN AND UNLABORED, RR 16. BED ALARM REMAINS ON FOR PATIENT SAFETY. CALL LIGHT IN REACH.
--- NOTE | 2017-06-01 00:57 | NUR ---
PT IS RESTING WITH EYES CLOSED, RESPIRATIONS EVEN AND NONLABORED. BED ALARM ON AND PT IS BEING MONITORED FROM NURSES STATION.
--- NOTE | 2017-06-01 02:14 | NUR ---
PATIENT IS RESTING IN BED WITH EYES CLOSED. BREATHING IS EVEN AND UNLABORED. PATIENT REMAINS UNDER CLOSE OBSERVATIONS. PATIENTS BED ALARM REMAINS ON FOR SAFETY. CALL LIGHT IN REACH.
--- NOTE | 2017-06-01 04:11 | NUR ---
PT IS AWAKE AND UP TO CHAIR AT THIS TIME WITH ALARM IN PLACE AND CALL LIGHT WITHIN REACH. PT CONTINUES TO BE DISORIENTED AT TIMES WITH OCD BEHAVIORS: LICKING FINGERS AND RUBBING FACE AND HAIR, PUTTING LOTION ON. PT CONTINUES TO MAKE INAPPROPRIATE COMMENTS. PT HAS BEEN UP TO THE TOILET SEVERAL TIMES TONIGHT AND KEEPING HER ATTENDS DRY, SHE IS VOIDING QUANITY SUFFICIENT. SHE HAS AMBULATED THE SPRINGER WAY 2 DIFFERENT TIMES TONIGHT AND MADE SEVERAL ROUNDS. SHE SLEPT WELL FOR SEVERAL HOURS BETWEEN TRIPS TO THE BATHROOM. PT HAS NO COMPLAINTS OF PAIN AND NO IV SITE.
--- NOTE | 2017-06-01 04:56 | NUR ---
PATIENT PROVIDED WITH A SNACK OF X2 PUDDING, X1 JELLO, AND MERI CRACKERS. PATIENT IS RESTING IN RECLINER. PATIENT HAS CHAIR ALARM IN PLACE FOR SAFETY. CALL LIGHT IN REACH.
--- NOTE | 2017-06-01 07:23 | EKG ---
[facility] [address] [place] [address] Signed Sinus rhythm with premature supraventricular complexes Low voltage QRS Cannot rule out Anterior infarct , age undetermined Abnormal ECG When compared with ECG of 26-MAY-2017 10:44, No significant change was found Confirmed by NAHED ANAYA MD ([id number]) on 06/01/2017 7:22:57 AM Electronically Signed By: NAHED ANAYA MD 06/01/17 0723 PATIENT NAME: KRERY ST Electrocardiogram DATE OF : 39 PHYSICIAN: NAHED ANAYA MD REPORT #: [id number] REPORT IS CONFIDENTIAL AND NOT TO BE RELEASED WITHOUT AUTHORIZATION
--- NOTE | 2017-06-01 07:30 | NUR ---
AT 0705, RECIEVED BEDSIDE REPORT FROM BELLA AND DYAN OWENS. PT SITTING UP IN RECLINER, SPILLED HER COFFEE, WHICH WAS COOL, ONTO HER TRAY TABLE. THIS WAS CLEANED UP BY NURSING STAFF. PT THEN BEGAN MASTERBATING WITH FINGERS. PT SITTING ON PRESSURE CHAIR ALARM. CURTAIN CLOSED. MARY LOU SANDOVAL AT DESK TO CLOSELY MONITOR PT. PT DENIED PAIN.
--- NOTE | 2017-06-01 08:00 | NUR ---
AM ASSESSMENT COMPLETE. PT ALERT, DISORIENTED TO EVENTS, DATE. LICKING FINGERS AND RUBBING SALIVA ON FACE, IN HAIR, ON ARMS, AND ON VAGINA. ASSISTED PT TO WASH HANDS.
--- NOTE | 2017-06-01 08:21 | NUR ---
PT IS SITTING IN CHAIR, LICKING HERSELF. PULLING GOWN UP OVER HER HEAD.
--- NOTE | 2017-06-01 08:33 | NUR ---
pt is still up in chair licking her hands and wiping her face and other body parts. chair alarm is on and call light in place
--- NOTE | 2017-06-01 09:49 | NUR ---
PT IN BED RESTING, ANSWERS QUESTIONS APROPRIATELY, NO SEXUAL COMENTS. OBTAINED VS. BED ALARM ON. DENIES PAIN.
--- NOTE | 2017-06-01 10:16 | NUR ---
pt is asleep in bed. bed alarm on, call light in place
--- NOTE | 2017-06-01 10:17 | NUR ---
REDIRECTED PT TO PUT HER GOWN BACK ON. PT AGREED. PT IS NOW LAYING IN BED RESTING. CALL LIGHT IS IN REACH.
--- NOTE | 2017-06-01 10:39 | NUR ---
PT IN BED. CONTINUES TO LICK FINGERS, AND RUB THE SALIVA ON ON HER FACE.
--- NOTE | 2017-06-01 11:28 | NUR ---
DR. ANAYA IN TO SEE PT AND ASSESS HER. PT ALERT, DISORIENTED TO EVENTS, DATE. ORIENTED TO PLACE, SELF. PT HAS A BOTTLED WATER ON BEDSIDE TABLE, IS PLACING FINGERS INTO THE WATER, AND WIPING IT ON HER FACE AND INTO HER NOSTRILS. PT STATED THAT THE BOTTLED WATER WAS DISINFECTANT. PT DENIED PAIN, DENIED NEEDS. IS IN BED, BED ALARM ON.
--- NOTE | 2017-06-01 12:13 | NUR ---
PT IN BED, HER SON, DAUGHTER, AND DAUGHTER IN LAW TO PT'S ROOM. PT'S SON NOTIFIED THIS RN THAT PT NEEDED TO USE RESTROOM. ASSISTED PT UP TO BATHROOM. PT COUNTING REPETATIVELY. PT VOIDED 600 CC CLEAR YELLOW URINE. PT THEN BACK TO BED, BED ALARM ON, AND PT'S FAMILY AT BEDSIDE. PT'S BOTTLED WATER, AND HER ICE WATER ON BEDSIDE TABLE, IN REACH. CALL BUTTON AT PT'S SIDE. PT REMINDED TO CALL FOR ANY NEEDS. PT AGREED TO CALL.
--- NOTE | 2017-06-01 12:31 | NUR ---
lif[facility] in room with family and pt. she is laying in bed licking herself.
--- NOTE | 2017-06-01 12:32 | NUR ---
PT IS LAYING IN BED FOLDING HER BLANKET. FAMILY IS IN THE ROOM ALONG WITH [facility].
--- NOTE | 2017-06-01 13:05 | NUR ---
ASSIST UP TO BR, MADHURI AMBULATION WELL. RETURNS TO BED. ALARM IN PLACE.
--- NOTE | 2017-06-01 13:32 | NUR ---
DUE TO PT DUMPING WATER OUT TO RUB ON HER BODY. UNABLE TO MEASURE PT INTAKE. PT HAS BEEN DRINKING THROUGHOUT THE MORNING. RN HAS BEEN NOTIFIED.
--- NOTE | 2017-06-01 13:34 | NUR ---
PT SITTING UP IN RECLINER. EATING LUNCH, TAKING BITES QUICKLY WITHOUT CHEWING AND SWALLOWING FIRST BITE BEFORE PLACING NEXT BITE IN MOUTH. THIS RN CUED PT TO SLOW DOWN, TAKE BITES AFTER CHEWING AND SWALLOWING FIRST. PT AGREED. CARIDAD, STUDENT NURSE IN ROOM WITH PT, AT PT'S SIDE, CUEING PT TO EAT SLOWLY, PT FOLLOWING CUES. JORGE COLES, CRISIS MENTAL HEALTH SPECIALIST II IN TO SEE AND ASSESS PT.
--- NOTE | 2017-06-01 14:00 | NUR ---
PT EATING LUNCH STILL. CONTINUES TO REQUIRE VERBAL CUES TO EAT SLOWLY. DENIES PAIN. WAS UP TO BATHROOM WITH 1 PERSON ASSIST WITH FWW. NOW BACK IN RECLINER EATING LUNCH.
--- NOTE | 2017-06-01 14:40 | NUR ---
ASSIST PT UP TO BR. RETURNS TO CHAIR, ALARM IN PLACE. CALL LIGHT IN REACH. PT GIVEN WARM BLANKET AND RE ORIENTED.
--- NOTE | 2017-06-01 15:37 | NUR ---
PT SITTING UP IN RECLINER, STOOD UP WITHOUT CALLING FOR ASSISTANCE, CHAIR ALARM SOUNDED. THIS RN TO ROOM, PT CUED TO SIT UNTIL THIS RN GOT FWW TO PT. PT COMPLIANT WITH REQUEST. PT TO BATHROOM WITH FWW WITH 1 PERSON ASSIST. PT VOIDED IN TOILET, MISSED HAT. PT WASHED HER HANDS, WIPED OFF COUNTER AND SINK WITH TOWEL, THEN RETURNED TO RECLINER. ALARM ON, PERSONAL SUPPLIES AND CALL LIGHT IN REACH, PT REMINDED TO USE CALL LIGHT FOR ASSISTANCE, AND TO WAIT FOR NURSE ASSSISTANCE PRIOR TO ANY TRANSFERS.
--- NOTE | 2017-06-01 15:54 | NUR ---
pt sitting up in the recliner coloring. call light is in reach.
--- NOTE | 2017-06-01 17:30 | NUR ---
PT LAYING IN BED, PICKING AT BLANKET, LICKING FINGERS AND RUBBING SALIVA ON FACE. BED ALARM ON, CURTAIN AND DOOR OPEN FOR CLOSE MONITORING. PT REMINDED TO USE CALL LIGHT FOR ASSISTANCE. CALL LIGHT AND PERSONAL SUPPLIES IN REACH.
--- NOTE | 2017-06-01 17:35 | NUR ---
PT CONTINUED TO ENGAGE IN REPETATIVE BEHAVIORS SUCH LICKING FINGERS AND RUBBING FACE, WIPING OFF COUNTER AND INSIDE OF SINK EVERY TIME SHE USES THE BATHROOM, WASHES HER HANDS AND HER ARMS TO ELBOW EVERY TIME SHE USES THE BATHROOM, AND PICKING AT BLANKET. ALSO MADE SEXUAL REMARKS TO STAFF, AND MASTERBATED WITH CURTAIN AND DOOR OPEN. ALSO ATTEMPTED TO REMOVE GOWN WITH CURTAIN AND DOOR OPEN SEVERAL TIMES TODAY, AND WAS REDIRECTED VERBALLY TO REMAIN CLOTHED. ALERT, BUT DISORIENTED TO DATE, EVENTS, PERSON. SKIN OF FACE IS REDDENED FROM VERY FREQUENT RUBBING BY PT. ATTEMPTED TO REDIRECT THROUGHOUT SHIFT, WITH VERY LITTLE SUCCESS.
--- NOTE | 2017-06-01 19:20 | NUR ---
RECEIVED REPORT ON PT, SHE IS AWAKE IN BED AT THIS TIME COUNTING AND PLAYING WITH HER BLANKET. PT HAS NO REQUESTS OR COMPLAINTS OF PAIN AT THIS TIME. BED ALARM IS ON AND CALL LIGHT WITHIN REACH. PT IS VISABLE FROM NURSES STATION AND MONITORED CLOSELY.
--- NOTE | 2017-06-01 22:52 | NUR ---
PT IS RESTING IN BED AT THIS TIME WITH EYES CLOSED, RESPIRATIONS EVEN AND NONLABORED. ASSESSMENT COMPLETE AND EVENIN MEDICATIONS WERE GIVEN. PT IS VOIDING QS AND CHANGED PT'S BEDDING BECAUSE SHE WENT IN HER ATTENDS AND IT LEAKED. ALSO HELPED PT TO RESTROOM TWICE. SHE CONTINUES TO LICK HER FINGERS AND RUB HER FACE AND MAKES INNAPROPRIATE COMMENTS. BED ALARM ON AND ROOM IS NEXT TO NURSES STATION WITH CLOSE MONITORING.
--- NOTE | 2017-06-02 01:04 | NUR ---
PT IS RESTING WITH EYES CLOSED, RESPIRATIONS EVEN AND NONLABORED. MONITORED FROM NURSES STATION, CALL LIGHT WITHIN REACH AND BED ALARM ON.
--- NOTE | 2017-06-02 02:52 | NUR ---
PT IS RESTING WITH EYES CLOSED, RESPIRATIONS EVEN AND NONLABORED. PT IS CLOSED TO NURSES STATION AND SLEEPING WELL WITHOUT THE NEED FOR PRN SONATA. CALL LIGHT WITHIN REACH AND BED ALARM ON.
--- NOTE | 2017-06-02 03:16 | NUR ---
PT WOKE TO USE THE RESTROOM. REORIENTED PT AND HELPED PT TO CHAIR. CHAIR ALARM ON, CALL LIGHT WITHIN REACH, AND PT HAS NO FURTHER REQUESTS.
--- NOTE | 2017-06-02 03:39 | NUR ---
PT IS BACK IN BED AFTER USING THE RESTROOM AGAIN. ASSESSMENT COMPLETE AND PT IS STILL CONFUSED BUT ORIENTED TO PERSON AND PLACE AT THIS TIME. CALL LIGHT WITHIN REACH AND BED ALARM ON, PT IS CLOSE TO NURSES STATION.
--- NOTE | 2017-06-02 04:00 | NUR ---
ASSISTED PT TO BATHROOM. PT IS SITTING IN CHAIR. CHAIR ALARM IS ON. PT HAS BEEN VERY COOPERATIVE. NO COMPULSIVE BEHAVIOR NOTED WITH THIS INTERACTION.
--- NOTE | 2017-06-02 06:54 | NUR ---
VITALS AND I&OS DONE AND CHARTED. BEDSIDE TABLE AND CALL LIGHT WITHIN REACH.
--- NOTE | 2017-06-02 08:32 | NUR ---
PATIENT IS SLEEPING BED ALARM IS ON.
--- NOTE | 2017-06-02 10:06 | NUR ---
ASSISTED PATIENT UP TO THE BATHROOM, PATIENT IS A 1 PERSON ASSIST WITH HER FWW, SHE VOIDED 100 MLS OF CLEAR YELLOW URINE AND HAD A LARGE BM.
--- NOTE | 2017-06-02 10:45 | NUR ---
ADMINISTERED MORNING MEDICAITONS. MOTORBOAT MECHANIC INBOARD/OUTBOARD ORDERED BREAKFAST AND LUNCH FOR PATIENT, BOTH CAME AT SAME TIME. PATIENT EATING WELL. APPEARS CALM, HOWEVER DOES NOT ANSWER QUESTIONS WELL. ORIENTED TO SELF, AND ABLE TO VERBALIZE BEING IN THE HOSPITAL. WHEN ASKED WHO WAS PRESIDENT PATIENT STATED " I THINK SHRUTI GOT IT OVER [place], THAT BABKavya". CALL LIGHT IN REACH AND PRESSURE MAT ALARM ON IN RECLINER. FREQUENT CHECKS ARE BEING PROVIDED. VS STABLE.
--- NOTE | 2017-06-02 15:52 | NUR ---
PATIENT JUST GOT A SHOWER ALSO SHE WASHED HER HAIR LINENS WERE CHANGED THIS MORNING. SITTING UP IN CHAIR WITH WARM BLANKET. CHAIR ALARM ON.
--- NOTE | 2017-06-02 18:46 | NUR ---
PATIENT MUCH MORE APPROPRIATE TODAY, ANSWERING QUESTIONS MOST OF THE TIME APROPRIATLEY. VERY LIMITED SEXUAL CONTENT VERBALIZED. PATIENT UP AMBULATING IN ROOM, SHOWERED. SLEPT WELL LAST NIGHT AND INTO MORNING. GOOD APPETITE. PATIENT FIXATED ON NUMBERS, APPEARS TO ALWASY TO BE COUNTING. VS STABLE.
--- NOTE | 2017-06-02 19:30 | NUR ---
RECEIVED REPORT AT 1900. FOUND PT SITTING IN CHAIR EATING HER DINNER. PT WAS NOT VERY INTERACTIVE BUT VERY CONCENTRATED EATING. AT ABOUT 1915 PT WAS EATING STYROFOAM CUP. IT WAS TAKEN AWAY AND MD GONCALVES WAS CALLED. NO NEW ORDERS WERE GIVEN.
--- NOTE | 2017-06-02 19:42 | NUR ---
As per primary RN Suzette "Pt took several bites of her foam cup that was on her tray". Pt with no gagging or swallowing issues at this time. Primary RN bedside assessing pt. Dr Coleman notified about above incident,by this RN, no new orders.
--- NOTE | 2017-06-02 22:00 | NUR ---
V/S ARE WDL, PT IS ORIENTED TO SELF, SOMEWHAT TO PLACE AND TO HER DATE OF . ALL LOBES ARE CLEAR. SKIN IN FACE IS STILL IRRITATED FROM RUBBING IT WITH HER HANDS. TOUCHING AND RUBBING ON THINGS WAS THE PREDOMINANT BEHAVIOR THIS EVENING. PT NOW IS IN BED RESTING.
--- NOTE | 2017-06-03 00:30 | NUR ---
PT IS AWAKE IN BED. NO NEEDS AT THIS TIME. PT IS RUBBING BLANKET CONSTANTLY.
--- NOTE | 2017-06-03 01:48 | NUR ---
HELPED JUAN LUIS TOMAS CHANGE HER BED LINENS. THEY WERE WET WITH URINE. GOT HER A NEW GOWN, AND ATTENDS. EMPTIED ALL GARBAGES. PUT ALL OTHER LINENS IN THE LAUNDRY. CHARTED OUTPUT.
--- NOTE | 2017-06-03 02:30 | NUR ---
PT IS SLEEPING AT THIS TIME.
--- NOTE | 2017-06-03 04:29 | NUR ---
PT IS SLEEPING AT THIS TIME.
--- NOTE | 2017-06-03 05:54 | NUR ---
PT AT FIRST DID NOT SLEEP EVEN WITH SCHEDULED MELATONIN. PRN SLEEPING AID WAS GIVEN. PT AFTERWARDS SLEPT FOR ABOUT 4.5 HRS. PT IS ORIENTED TO SELF AND AT TIMES TO PLACE. PT ATE SOME STYROFOAM AT START OF SHIFT, MD GONCALVES IS AWARE. PT IS EASY RE-ORIENTED WHEN OCD BEHAVIOR STARTS AND IS VERY COOPERATIVE. NO NEW ISSUES NOTED SO FAR THIS SHIFT.
--- NOTE | 2017-06-03 08:42 | NUR ---
PATIIENT UP TO BATHROOM VOIDED WELL THEN TO RECLINER, APPEARS STEADY ON FEET. PATIENT STATES, " I AM HUNGRY" PATIENT NOW EATING BREAKFAST. LUNG SOUNDS CLEAR THROUGHOUT. NO COMPLAINTS OF PAIN. ALERT TO SELF.
--- NOTE | 2017-06-03 12:13 | NUR ---
CARE CONFERENCE ATTENDEES: PATIENT, DAUGHTER TRISTIN STAFF: DR ANAYA, MYSELF CASE MANAGEMENT, JEOVANNY RN, SUMMER CHW DISCUSSION WAS HAD ON PTS CURRENT CONDITION AND HOW SHE HAS IMPROVED IN WAYS AND NOT IN OTHERS (PT ATTEMPTED TO EAT A STYROFOAM CUP LAST NIGHT). DR ANAYA DISCUSSED HOW SHE IS GOING TO INCREASE HER HALDOL. WE DISCUSSED HOW WE ARE CHANGING HER OVER TO A SWING BED TODAY. EXPLAINED WHAT THAT MEANS AND THE EXPECTATIONS OF THE PATIENT AND FAMILY. TRISTIN MENTIONED THAT SHE THINKS SHE HAS EVERYTHING THAT WILL BE NEEDED BY [employer] (AGING AND PEOPLE WITH DISABLITIES) AND SHE WILL BE GOING OVER THERE TODAY. NO FURTHER QUESTIONS OR CONCERNS WERE NEEDED TO BE DISCUSSED AT THIS TIME. TRISTIN DENIED FURTHER QUESTIONS. WILL CONTINUE TO FOLLOW PT DURING HER STAY AT THE HOSPITAL.
--- NOTE | 2017-06-03 12:23 | NUR ---
CARE CONFERENCE WITH FAMILY. PATIENT TO SWING BED. PLAN TO GET PATIENT PLACED IN ASSISTIVE LIVING, DAUGHTER PLANS TO MOVE FORWARD TO ESTABLISH MEDICAID. ALL QUESTIONS ADDRESSED. NEW ORDER FOR PATIENT TO BE ABLE TO USE BONE STIMULATOR THERAPY FOR POST BACK SURGERY.
== END 2017-06-03 12:16 | disposition swing bed (61) | DRG 93 ==
LOC: ED 12:38 → MS 12:40
PROVIDERS: ADMIT Internal Medicine
DX: G92 Toxic encephalopathy (principal); E87.6 Hypokalemia; E78.5 Hyperlipidemia, unspecified; Z66 Do not resuscitate; F03.90 Unspecified dementia, unspecified severity, without behavioral disturbance, psychotic disturbance, mood disturbance, and anxiety; F42.9 Obsessive-compulsive disorder, unspecified; E83.42 Hypomagnesemia; I10 Essential (primary) hypertension; T40.605A Adverse effect of unspecified narcotics, initial encounter; T48.205A Adverse effect of unspecified drugs acting on muscles, initial encounter; F17.200 Nicotine dependence, unspecified, uncomplicated
CPT/HCPCS: 36415; 80048; 80053; 81001; 82607; 83655; 83735; 84439; 84443; 85025; 85651; 86592; 93005; 93010; 97161; G8978; G8979; G8980; J1650; J3475

== ENCOUNTER 2017-06-03 12:10 | Inpatient (IN) | payer MEDICARE, OTHER ==
[~2017-06-03] VITALS: Ht 157.5 cm; Wt 69.6 kg
[2017-06-10] MEDS ORDERED: NORVASC5 MG PO (14:29)
[2017-06-10] MEDS ORDERED: ACETAMINOPHEN500 MG PO (14:30)
[2017-06-10] MEDS ORDERED: SERTRALINE HCL25 MG PO (14:30)
[2017-06-10] MEDS ORDERED: HALOPERIDOL5 MG PO (14:31)
[2017-06-10] MEDS ORDERED: MELATONIN3 MG PO (14:31)
[2017-06-10] MEDS ORDERED: ACULAR5 ML OU (14:33)
[2017-06-10] MEDS ORDERED: ARTIFICIAL TEAR15 M1 OU (15:51)
== END 2017-06-10 15:45 | disposition home or self-care (01) | DRG 884 ==
LOC: MS 12:10
PROVIDERS: ADMIT Internal Medicine
DX: F03.91 Unspecified dementia, unspecified severity, with behavioral disturbance (principal); G92 Toxic encephalopathy; F05 Delirium due to known physiological condition; H10.13 Acute atopic conjunctivitis, bilateral; Z98.890 Other specified postprocedural states; I10 Essential (primary) hypertension; E78.5 Hyperlipidemia, unspecified; Z66 Do not resuscitate; E87.6 Hypokalemia; Z87.891 Personal history of nicotine dependence
CPT/HCPCS: 36415; 80048; 92507; 92523; 97032; 97110; 97112; 97116; 97162; 97166; 97530; 97535; J1650

== ENCOUNTER 2018-09-25 14:11 | Observation (INO) | payer MEDICARE, OTHER ==
[~2018-09-25] VITALS: Ht 157.5 cm; Wt 63.7 kg
--- OUTSIDE RECORDS SUMMARY | ~2018-09-25 | XMS | Clinical Summary ---
Demographics + + + | Address | [address] | | | [place] [address] | + + + | Home Phone | | + + + | Preferred Language | Unknown | + + + | Marital Status | | + + + | Advent Affiliation | 1041 | + + + | Race | Unknown | + + + | Ethnic Group | Unknown | + + + Author + + + | Author | [facility] | | | and Agustín | + + + | Organization | [facility] | | | and Leandroana | + + + | Address | Unknown | + + + | Phone | Unavailable | + + + Support + + + + + | Name | Relationship | Address | Phone | + + + + + | Tristin See | ECON | [place] | | | | | [address] | | + + + + + Care Team Providers + +------+ + | Care Sales Promotion Director Name | Role | Phone | + +------+ + | Sean Vázquez MD | PP | | + +------+ + Allergies + + + + + + | Active Allergy | Reactions | Severity | Noted | Comments | | | | | Date | | + + + + + + | Codeine | Other (See Comments) | | 09/24/19 | Reaction not | | | | | 18 | specified on patient | | | | | | questionnaire. | + + + + + + | Morphine And Related | Hives | Medium | 01/28/20 | | | | | | 17 | | + + + + + + | Oxycodone | Itching | Medium | 03/29/20 | | | | | | 17 | | + + + + + + Medications + + + +---------+------+------+-------+ | Medication | Sig | Dispensed | Refills | Star | End | Statu | | | | | | t | Date | s | | | | | | Date | | | + + + +---------+------+------+-------+ | lisinopril | Take 40 mg by mouth | | 0 | | | Activ | | (PRINIVIL,ZESTRIL) | Daily. | | | | | e | | 40 MG tablet | | | | | | | + + + +---------+------+------+-------+ | pravastatin | Take 40 mg by mouth | | 0 | | | Activ | | (PRAVACHOL) 40 MG | nightly. | | | | | e | | tablet | | | | | | | + + + +---------+------+------+-------+ | haloperidol | Take 7.5 mg by mouth | | 0 | | | Activ | | (HALDOL) 5 mg tablet | 2 times daily. | | | | | e | + + + +---------+------+------+-------+ | melatonin 3 mg | Take 3 mg by mouth | | 0 | | | Activ | | TABS | nightly. | | | | | e | + + + +---------+------+------+-------+ | sertraline | Take 25 mg by mouth | | 0 | | | Activ | | (ZOLOFT) 25 mg | Daily. | | | | | e | | tablet | | | | | | | + + + +---------+------+------+-------+ | amLODIPine | Take 5 mg by mouth | | 0 | | | Activ | | (NORVASC) 5 mg | Daily. | | | | | e | | tablet | | | | | | | + + + +---------+------+------+-------+ | KETOROLAC | Apply to eye. | | 0 | | | Activ | | TROMETHAMINE OP | Instill one drop | | | | | e | | | each eye 4 times | | | | | | | | daily | | | | | | + + + +---------+------+------+-------+ | polyethylene | Take 17 g by mouth | | 0 | | | Activ | | glycol (MIRALAX) | Daily. | | | | | e | | powder | | | | | | | + + + +---------+------+------+-------+ Active Problems + + + | Problem | Noted Date | + + + | Greater trochanteric bursitis, right | 10/18/2017 | + + + | Spinal stenosis, lumbar | | + + + | Spinal stenosis of lumbar region | | + + + | Lumbar spondylosis | | + + + | Lumbar radiculopathy | | + + + | Localized primary osteoarthritis | | + + + + + | Overview: Vertebral Lumbar | + + + +---+ | Impaired fasting glucose | | + +---+ | Hypertension | | + +---+ | Hyperlipidemia, unspecified | | + +---+ | Essential hypertension, benign | | + +---+ | Facet syndrome, lumbar | | + +---+ | DDD (degenerative disc disease), lumbar | | + +---+ Family History + + + + + | Medical History | Relation | Name | Comments | + + + + + | No known problems | Child | | | + + + + + | No known problems | Child | | | + + + + + | No known problems | Child | | | + + + + + | Elevated lipids | Daughter | TRISTIN | | | | | [place]ALLOWAY | | + + + + + | Coronary artery | Father | | | | disease | | | | + + + + + | Diabetes | Father | | | + + + + + | Heart attack | Father | | | + + + + + | Heart failure | Father | | | + + + + + | Hypertension | Father | | | + + + + + | No known problems | Maternal | | | | | Grandfath | | | | | er | | | + + + + + | No known problems | Maternal | | | | | Grandmoth | | | | | er | | | + + + + + | Dementia | Mother | | | + + + + + | Hypertension | Mother | | | + + + + + | Stroke | Mother | | | + + + + + | Esophageal cancer | Other | | | + + + + + | Heart attack | Paternal | | | | | Grandfath | | | | | er | | | + + + + + | Stroke | Paternal | | | | | Grandmoth | | | | | er | | | + + + + + | Alcohol abuse | Sister | | | + + + + + | Breast cancer | Sister | | | + + + + + | Coronary artery | Sister | | | | disease | | | | + + + + + | Elevated lipids | Sister | | | + + + + + | Hypertension | Sister | | | + + + + + | Other cancer | Sister | | Pancreatic | + + + + + | Stroke | Sister | | | + + + + + | Cancer | Sister | | | + + + + + + + + + + | Relation | Name | Status | Comments | + + + + + | Child | | Other | STATUS UNKNOWN | + + + + + | Child | | Other | STATUS UNKNOWN | + + + + + | Child | | Other | STATUS UNKNOWN | + + + + + | Daughter | TRISTIN | Alive | STATUS UNKNOWN | | | [place]AY | | | + + + + + | Father | | | Heart attack | + + + + + | Maternal Grandfather | | | STATUS UNKNOWN | + + + + + | Maternal Grandmother | | | STATUS UNKNOWN | + + + + + | Mother | | | | + + + + + | Other | | | | + + + + + | Paternal Grandfather | | | | + + + + + | Paternal Grandmother | | | | + + + + + | Sister | | | Cancer | + + + + + | Sister | | | Cancer | + + + + + Social History + + + +--------+ + | Tobacco Use | Types | Packs/Day | Years | Date | | | | | Used | | + + + +--------+ + | Current Every Day | Cigarettes | 0.25 | 60 | Started: [birth year]/16[birth year]1957 | | Smoker | | | | | + + + +--------+ + + +---+---+---+ | Smokeless Tobacco: | | | | | Never Used | | | | + +---+---+---+ + + +---------+ + | Alcohol Use | Drinks/We | oz/Week | Comments | | | ek | | | + + +---------+ + | No | | | | + + +---------+ + + + + | Sex Assigned at | Date Recorded | | | | + + + | Not on file | | + + + + + + + | Job Start Date | Occupation | Industry | + + + + | Not on file | Not on file | Not on file | + + + + + + + + | Travel History | Travel Start | Travel End | + + + + + + | No recent travel history available. | + + Last Filed Vital Signs + + + + | Vital Sign | Reading | Time Taken | + + + + | Blood Pressure | 138/60 | 10/18/2017 1519 PDT | + + + + | Pulse | 65 | 10/18/2017 1519 PDT | + + + + | Temperature | 36.2 C (97.2 F) | 05/04/2017 1500 PST | + + + + | Respiratory Rate | 16 | 08/17/2017 1435 PDT | + + + + | Oxygen Saturation | 95% | 05/04/2017 1500 PST | + + + + | Inhaled Oxygen | - | - | | Concentration | | | + + + + | Weight | 71.2 kg (157 lb) | 10/18/20171518 PDT | + + + + | Height | 154.9 cm (5' 1") | 10/18/20171518 PDT | + + + + | Body Mass Index | 29.66 | 10/18/20171518 PDT | + + + + Plan of Treatment + + + + + | Health Maintenance | Due Date | Last Done | Comments | + + + + + | Vaccine: | | | | | Dtap/Tdap/Td (1 - | 6 | | | | Tdap) | | | | + + + + + | Vaccine: Zoster (1 | | | | | of 2) | 7 | | | + + + + + | Vaccine: | | | | | Pneumococcal 65+ | 2 | | | | Low/Medium Risk (1 | | | | | of 2 - PCV13) | | | | + + + + + | Adult Annual | | | | | Wellness Visit | 7 | | | + + + + + | Vaccine: Influenza | | | | | (Season Ended) | 9 | | | + + + + + Implants + +--------+--------+ +--------+--------+--------+ | Implanted | Type | Area | Manufacture | Device | Shelf | Model | | | | | r | | Expira | / | | | | | | Identi | tion | Serial | | | | | | fier | Date | / Lot | + +--------+--------+ +--------+--------+--------+ | Bone Chips 15cc - | Bone | Right: | RTI | | 08/03/ | [id number] | | [id number]: Qty: 1 | | Spine | BIOLOGICS | | 2021 | | | on 04/25/2017 by Virginie, | | | INC - RBIO | | | /[id number] | | Ray Thrasher DO | | Lumbar | | | | 1-034 | | | | | | | | / | + +--------+--------+ +--------+--------+--------+ | Imp Spn Spcr 32x9mm - | Generi | Right: | [employer] - | | 04/17/ | [id number] | | Sn/AImplanted: Qty: 1 on | c | Spine | MEDT | | 2022 | //A | | 04/25/2017 by Ray Rachel | | | | | | | | DO Price | | Lumbar | | | | /[id number] | | | | | | | | 018 | + +--------+--------+ +--------+--------+--------+ | Imp Spn Roderick Sext Ti | Generi | Right: | [employer] - | | | 536304 | | [id number] - | c | Spine | MEDT | | | 5070 / | | [id number]: Qty: 2 on | | | | | | / | | 04/25/2017 by Ray Rachel | | Lumbar | | | | | | A, DO | | | | | | | + +--------+--------+ +--------+--------+--------+ | Graft Infuse Bone Kit Xs - | Graft | Right: | [employer] - | | 05/15/ | [id number] | | Sn/AImplanted: Qty: 1 on | | Spine | MEDT | | 2017 | 0 /N/A | | 04/25/2017 by Ray Rachel | | | | | | | | A, DO | | Lumbar | | | | /[id number] | | | | | | | | 29AAM | + +--------+--------+ +--------+--------+--------+ | Putty [place] 5cc Dbm - | Graft | Right: | [employer] - | | 07/30/ | 23481 | | [id number]: Qty: 1 | | Spine | MEDT | | 2020 | /[id number] | | on 04/25/2017 by Virginie, | | | | | | 7019 | | Ray Thrasher DO | | Lumbar | | | | /N/A | + +--------+--------+ +--------+--------+--------+ | Screw 4.75 Xtb Rivera Mas | Screw | Right: | [employer] - | | | [id number] | | 6.5x55 - [id number]: | | Spine | MEDT | | | [id number] | | Qty: 4 on 04/25/2017 by | | | | | | / / | | Ray Rachel DO | | Lumbar | | | | | + +--------+--------+ +--------+--------+--------+ | Screw 4.75 Xtb Rivera Mas | Screw | Right: | [employer] - | | | [id number] | | 7.5x50 - [id number]: | | Spine | MEDT | | | 30453 | | Qty: 2 on 04/25/2017 by | | | | | | / / | | Ray Rachel DO | | Lumbar | | | | | + +--------+--------+ +--------+--------+--------+ | Screw Set Slra Perc Ti 4.75 - | Screw | Right: | [employer] - | | | [id number] | | [id number]: Qty: 6 | | Spine | MEDT | | | 0 / / | | on 04/25/2017 by Virginie, | | | | | | | | Ray Thrasher DO | | Lumbar | | | | | + +--------+--------+ +--------+--------+--------+ | Transcontinental | | Right: | | | | 375.78 | | SpacerImplanted: Qty: 1 on | | Spine | | | | 0 / / | | 04/25/2017 by Ray Rachel | | | | | | | | DO Price | | Lumbar | | | | | + +--------+--------+ +--------+--------+--------+ Results Not on filefrom Last 3 Months Insurance + +--------+ +--------+ +---------+--------+ | Payer | Benefi | Subscriber | Effect | Phone | Address | Type | | | t Plan | ID | rajani | | | | | | / | | Dates | | | | | | Group | | | | | | + +--------+ +--------+ +---------+--------+ | MEDICARE | MEDICA | [id number] | 09/13/18 | [phone] | | Medica | | | RE | | 92-Pre | 5 | | re | | | PART A | | sent | | | | | | AND B | | | | | | + +--------+ +--------+ +---------+--------+ | ALLEGIANCE | ALLEGI | [id number] | 05/16/19 | | | PPO | | | ANCE | 2 | 16-Pre | | | | | | STATE | | sent | | | | | | [place] | | | | | | | | EMPLOY | | | | | | | | [place] | | | | | | | | PLAN | | | | | | + +--------+ +--------+ +---------+--------+ | [place] | MEDICA | [id number] | | [phone] | | Medica | | | [place] | | 018-Pr | 2 | | id | | | PLUS | | esent | | | | + +--------+ +--------+ +---------+--------+ + +--------+ +--------+ + + | Guarantor Name | Accoun | Relation to | Date | Phone | Billing Address | | | t Type | Patient | of | | | | | | | | | | + +--------+ +--------+ + + | Tita Gaspar | Person | Self | [birth year] | [address] | | [place] | [place] | | 1935 | [phone] | [place] [address] | | | ana | | | 5 (Home) | | + +--------+ +--------+ + + Advance Directives Patient has advance care planning documents, and code status on file. For more information, please contact:[facility] [place] [address] + + + + + | Code Status | Date | Date | Comments | | | Activated | Inactivated | | + + + + + | Full Code | 04/27/2017 | 05/04/2017 | | | | 12:10 | 20:13 | | + + + + + + + + +---+ | | | | | + + + +---+ | Full Code | 04/25/2017 | 04/27/2017 | | | | 15:54 | 12:01 | | + + + +---+
--- OUTSIDE RECORDS SUMMARY | ~2018-09-25 | XMS | Clinical Summary ---
Demographics + + + | Address | [address] | | | [place] [address] | + + + | Home Phone | | + + + | Preferred Language | Unknown | + + + | Marital Status | | + + + | Rastafarian Affiliation | 1041 | + + + | Race | Unknown | + + + | Ethnic Group | Unknown | + + + Author + + + | Author | [facility] | | | and Agustín | + + + | Organization | [facility] | | | and Leandroana | + + + | Address | Unknown | + + + | Phone | Unavailable | + + + Support + + + + + | Name | Relationship | Address | Phone | + + + + + | Tristin See | ECON | [place] | | | | | [address] | | + + + + + Care Team Providers + +------+ + | Care Sonoscope Operator Name | Role | Phone | + [...] Right: | RTI | | 08/03/ | 611405 | | [id number]: Qty: 1 | | Spine | BIOLOGICS | | 2021 | | | on 04/25/2017 by Virginie, | | | INC - RBIO | | | /[id number] | | Ray Thrasher DO | | Lumbar | | | | 1-034 | | | | | | | | / | + +--------+--------+ +--------+--------+--------+ | Imp Spn Spcr 32x9mm - | Generi | Right: | [employer] - | | 04/17/ | 212863 | | Sn/AImplanted: Qty: 1 on | [...] Right: | [employer] - | | | 995766 | | [id number] - | c | Spine | MEDT | | | 5070 / | | [id number]: Qty: 2 on | | | | | | / | | 04/25/2017 by Ray Rachel | | Lumbar | | | | | | A, DO | | | | | | | + +--------+--------+ +--------+--------+--------+ | Graft Infuse Bone Kit Xs - | Graft | Right: | [employer] - | | 05/15/ | [id number] | | Sn/AImplanted: Qty: 1 on | | Spine | MEDT | | 2017 | 0 /N/A | | 04/25/2017 by Ray Rachel | | | | | | | | A, DO | | Lumbar | | | | /[id number] | | | | | | | | 29AAM | + +--------+--------+ +--------+--------+--------+ | Putty [place] 5cc Dbm - | Graft | Right: | [employer] - | | 07/30/ | 90926 | | [id number]: Qty: 1 | | Spine | MEDT | | 2020 | [id number] | | on 04/25/2017 by Virginie, | | | | | | 7019 | | Ray Thrasher DO | | Lumbar | | | | /N/A | + +--------+--------+ +--------+--------+--------+ | Screw 4.75 Xtb Rivera Mas | Screw | Right: | [employer] - | | | 508204 | | 6.5x55 - [id number]: | | Spine | MEDT | | | 21789 | | Qty: 4 on 04/25/2017 by | | | | | | / / | | Ray Rachel DO | | Lumbar | | | | | + +--------+--------+ +--------+--------+--------+ | Screw 4.75 Xtb Rivera Mas | Screw | Right: | [employer] - | | | 360744 | | 7.5x50 - [id number]: | | Spine | MEDT | | | 77088 | | Qty: 2 on 04/25/2017 by | | | | | | / / | | Ray Rachel DO | | Lumbar | | | | | + +--------+--------+ +--------+--------+--------+ | Screw Set Slra Perc Ti 4.75 - | Screw | Right: | [employer] - | | | 680730 | | [id number]: Qty: 6 | | Spine | MEDT [...] +--------+ +---------+--------+ | MEDICARE | MEDICA | [id number] | 09/13/18 | [phone] | | Medica | | | RE | | 92-Pre | 5 | | re | | | PART A | | sent | | | | | | AND B | | | | | | + +--------+ +--------+ +---------+--------+ | ALLEGIANCE | ALLEGI | [id number] | 05/16/19 | | | PPO | [...] +---------+--------+ | MEDICAID [place] | MEDICA | [id number] | | [phone] | | Medica | [...] Person | Self | [birth year] | [address] | | [place] | [place] | | 1935 | [phone] | [place] [address] | | | ana | | | 5 (Home) | | + +--------+ +--------+ + + Advance Directives Patient has advance care planning documents, and code status on file. For more information, please contact:[facility] [place] [facility] [address] + + + + + | Code [...]
--- OUTSIDE RECORDS SUMMARY | ~2018-09-25 | XMS | Clinical Summary ---
Demographics + + + | Address | [address] | | | [place] [address] | + + + | Home Phone | | + + + | Preferred Language | Unknown | + + + | Marital Status | | + + + | Confucianist Affiliation | 1041 | + + + | Race | Unknown | + + + | Ethnic Group | Unknown | + + + Author + + + | Author | [facility] | | | and Agustín | + + + | Organization | [facility] | | | and Leandroana | + + + | Address | Unknown | + + + | Phone | Unavailable | + + + Support + + + + + | Name | Relationship | Address | Phone | + + + + + | Tristin See | ECON | [place] | | | | | [address] | | + + + + + Care Team Providers + +------+ + | Care Clinical Resource Nurse Name | Role | Phone | + [...] Right: | RTI | | 08/03/ | 107437 | | [id number]: Qty: 1 | | Spine | BIOLOGICS | | 2021 | | | on 04/25/2017 by Virginie, | | | INC - RBIO | | | /[id number] | | Ray Thrasher DO | | Lumbar | | | | 1-034 | | | | | | | | / | + +--------+--------+ +--------+--------+--------+ | Imp Spn Spcr 32x9mm - | Generi | Right: | [employer] - | | 04/17/ | [id number] | | Sn/AImplanted: Qty: 1 on | [...] Right: | [employer] - | | | 949464 | | [id number] - | c | Spine | MEDT | | | 5070 / | | [id number]: Qty: 2 on | | | | | | / | | 04/25/2017 by Ray Rachel | | Lumbar | | | | | | A, DO | | | | | | | + +--------+--------+ +--------+--------+--------+ | Graft Infuse Bone Kit Xs - | Graft | Right: | [employer] - | | 05/15/ | 131515 | | Sn/AImplanted: Qty: 1 on | | Spine | MEDT | | 2017 | 0 /N/A | | 04/25/2017 by Ray Rachel | | | | | | | | A, DO | | Lumbar | | | | /[id number] | | | | | | | | 29AAM | + +--------+--------+ +--------+--------+--------+ | Putty [place] 5cc Dbm - | Graft | Right: | [employer] - | | 07/30/ | 33972 | | [id number]: Qty: 1 | | Spine | MEDT | | 2020 | [id number] | | on 04/25/2017 by Virginie, | | | | | | 7019 | | Ray Thrasher DO | | Lumbar | | | | /N/A | + +--------+--------+ +--------+--------+--------+ | Screw 4.75 Xtb Rivera Mas | Screw | Right: | [employer] - | | | 734664 | | 6.5x55 - [id number]: | | Spine | MEDT | | | [id number] | | Qty: 4 on 04/25/2017 by | | | | | | / / | | Ray Rachel DO | | Lumbar | | | | | + +--------+--------+ +--------+--------+--------+ | Screw 4.75 Xtb Rivera Mas | Screw | Right: | [employer] - | | | 996319 | | 7.5x50 - [id number]: | | Spine | MEDT | | | [id number] | | Qty: 2 on 04/25/2017 by | | | | | | / / | | Ray Rachel DO | | Lumbar | | | | | + +--------+--------+ +--------+--------+--------+ | Screw Set Slra Perc Ti 4.75 - | Screw | Right: | [employer] - | | | [id number] | | [id number]: Qty: 6 | | Spine | MEDT [...] +--------+ +---------+--------+ | MEDICARE | MEDICA | [id number] | 09/13/18 | [phone] | | Medica | | | RE | | 92-Pre | 5 | | re | | | PART A | | sent | | | | | | AND B | | | | | | + +--------+ +--------+ +---------+--------+ | ALLEGIANCE | ALLEGI | [id number] | 05/16/19 | | | PPO | [...] +---------+--------+ | MEDICAID [place] | MEDICA | [id number] | | [phone] | | Medica | [...] Person | Self | [birth year] | | [address] | | [place] | [place] | | 1935 | [phone] | [place] [address] | | | ana | | | 5 (Home) | | + +--------+ +--------+ + + Advance Directives Patient has advance care planning documents, and code status on file. For more information, please contact:[facility] [place] [address] + + + + + | Code [...]
[~2018-09-25 14:11] MED LIST changes: +ACETAMINOPHEN500 MG PO; +ACULAR5 ML OU; +ARTIFICIAL TEAR15 M1 OU; +HALOPERIDOL5 MG PO; +MELATONIN3 MG PO; +NORVASC5 MG PO; +SERTRALINE HCL25 MG PO
[2018-09-25] MEDS ORDERED: LO-DOSE ASPIRIN81 M1 PO ×2 (14:32)
[2018-09-25] MEDS ORDERED: NORVASC10 MG PO ×2 (18:28)
[2018-09-25] MEDS ORDERED: MELATONIN10 M2 PO ×2 (18:31)
[2018-09-25] MEDS ORDERED: CITALOPRAM HBR10 MG PO ×2 (18:32)
[2018-09-25] MEDS ORDERED: CLEARLAX119 GM PO ×2 (18:32)
[2018-09-25] MEDS ORDERED: HYDROCHLOROTH12.5 MG PO ×2 (18:33)
[2018-09-25] MEDS ORDERED: OLOPATADINE HC2.5 ML OU ×2 (18:34)
[2018-09-25] MEDS ORDERED: PRESERVISION A1 EAC3 PO ×2 (18:35)
[2018-09-25] MEDS ORDERED: TESSALON PERLE100 MG PO ×2 (18:36)
[2018-09-25] MEDS ORDERED: IBUPROFEN400 MG PO ×2 (18:36)
--- NOTE | 2018-09-25 19:04 | NUR ---
PT TO FLOOR WITH MOTOR SETTER ELBA, DAUGHTER TRISTIN. PT ABLE TO MOVE TO BED ON OWN. PLEASANTLY CONFUSED, NOT ORIENTED.
--- NOTE | 2018-09-25 19:20 | NUR ---
BEDSIDE REPORT RECEIVED FROM JUAN LUIS ROWLAND. PT RESTING IN BED, ORIENTED TO SELF, . DAUGHTER AT BEDSIDE. BED ALARM ON. IVF INFUSING WNL ORDERED.
--- NOTE | 2018-09-25 21:03 | NUR ---
PT ADMISSION ASSESSMENT COMPLETE. PT ORIENTED TO PERSON, , PLACE. REORIENTATION PROVIDED RELATED TO YEAR AND EVENT. VSS. 1PA WITH FWW TO RESTROOM FOR VOID, SMALL AMOUNT OF INCONTINENCE IN ATTENDS. BRUISING NOTED ON FOREHEAD, BILATERALLY EXTREMITIES. PT COUGHING AFTER PO INTAKE. LUNG SOUNDS CLEAR THORUHGOUT ALL LOBES. ORAL CARE COMPLETE. MARY LOU FOX NOW IN ROOM. IVF INFUSING WNL.
--- NOTE | 2018-09-25 23:28 | NUR ---
CHECKED ON PT, RESTING IN BED WITH EYES CLOSED. BREATHING EQUAL AND NON-LABORED. LIGHTS OFF IN ROOM. BED ALARM ON.
--- NOTE | 2018-09-26 01:36 | NUR ---
CHECKED ON PT. RESTING IN BED WITH EYES CLOSED. BREATHING EVEN AND NON-LABORED. LIGHTS OFF IN ROOM. BED ALARM ON.
--- NOTE | 2018-09-26 03:42 | NUR ---
1 PA TO THE RESTROOM USING WALKER. CHANGED BED LINEN AND PULLUPS WET WITH URINE. CHNAGED GOWN WET FROM SWEAT. PATIENT IS BACK IN BED. BED ALARM ON.
--- NOTE | 2018-09-26 03:46 | NUR ---
PT ASSESSMENT AND VS COMPLETE. VSS. 1PA WITH FWW TO RESTROOM FOR VOID, INCONTINENT OF URINE. ATTENDS AND BEDDING CHANGED. PT WITH INCREASED CONFUSION THIS AM STATES "I'M GOING TO BE PROMISCUOUS." WASHING HANDS MULTIPLE TIMES IN RESTROOM, REORIENTATION PROVIDED. PT ORIENTED TO SELF, , LOCATION, NOT EVENT OR DATE. IV FLUSHED WNL, NEW BAG IVF INFUSING. ICE WATER AND WARM BLANKET PROVIDED. BED ALARM ON.
--- NOTE | 2018-09-26 04:38 | NUR ---
BED ALARM SOUNDING. SBA WITH FWW TO RESTROOM FOR VOID AND SMALL BM. PT COOPERATIVE, ABLE TO FOLLOW INSTRUCTION WITH PERSONAL HYGIENE. BACK IN BED, IVF INFUSING WNL. BED ALARM ON.
--- NOTE | 2018-09-26 06:38 | NUR ---
PT ORIENTED TO SELF, , LOCATION, REORIENTATION PROVIDED THROUGHOUT SHIFT. BED ALARM IN PLACE. 1PA WITH FWW. INCONTINENT OF URINE, ATTENDS IN PLACE. PT C/O BURNING/DYSURIA WITH VOIDS. QS OUTPUT. IVF INFUSING THROUGHOUT SHIFT ORDERED. PT COOPERATIVE, ABLE TO FOLLOW INSTRUCTION FOR USE OF WALKER, PERSONAL HYGIENE.
--- NOTE | 2018-09-26 07:10 | NUR ---
BEDSIDE HANDOFF REPORT RECEIVED FROM HEAD GREASE MAKER RN. PT SLEEPING, LEFT UNDISTURBED. IV INFUSING AT 100 ML/HR. BED ALARM IN PLACE. E
--- NOTE | 2018-09-26 08:30 | NUR ---
PT SLEEPING IN BED. PT VERY DROWSY, SLOW TO RESPOND TO QUESTIONS, FOLLOWING COMMANDS, DISORIENTED TO DATE AND PLACE. PT ON ROOM AIR O2 SATS 93%, LUNG SOUNDS CLEAR. BOWEL TONES ACTIVE, DECLINING BREAKFAST AT THIS TIME. CMS INTACT, WITHOUT EDEMA, PULSES PALPABLE. IV FLUIDS INFUSING D5 1/2NS +20 MEQ K AT 100ML/HR, IV ROCEPHIN GIVEN. MRONING MEDICATIONS HELD UNTIL PT MORE AWAKE. BED ALARM IN PLACE.
--- NOTE | 2018-09-26 09:20 | NUR ---
PT SCRATCHING SCALP, STATES "THERE ARE SPIDERS". ATTEMPTED TO DISTRACT PT, PROVIDED SHOWER CAP, UNABLE TO GET PT TO STOP SCRATCHING. MD NOTIFIED, VERBAL ORDER TO GIVE 50 MG IV BENADRYL ONCE, GIVEN. CARE MANAGER GOLF FROM [facility] AT BEDSIDE, PT CALMING. MD TO BEDSIDE TO EVALUATE PT. BED ALARM ON.
[2018-09-26] MEDS ORDERED: TESSALON PERLE100 MG PO ×2 (09:23)
[2018-09-26] MEDS ORDERED: MILK OF MA400 MG/5 M PO ×2 (09:30)
--- NOTE | 2018-09-26 09:32 | NUR ---
MED REC COMPLETE
--- NOTE | 2018-09-26 10:33 | NUR ---
PATIENT UP TO BSC AND THEN TO CHAIR, 1PA FWW. CHAIR ALARM IN PLACE. CALL LIGHT IN REACH. NO FURTHER NEEDS AT THIS TIME.
--- NOTE | 2018-09-26 11:20 | NUR ---
PT ASSISTED TO THE BATHROOM, SBA WITH WALKER. PT VOIDED AND HAD SMALL BM. PT ASSSITED TO BED. PT REQUESTING TYLENOL FOR HIP PAIN, NIO ORDER PLACED, TYLENOL GIVEN. DAVID AT BEDSIDE, ENCOURAGED TO ENGAGE WITH PT TO KEEP HER AWAKE. PT AND DAUGHTER DENY OTHER NEEDS AT THIS TIME.
--- NOTE | 2018-09-26 14:00 | NUR ---
PT IS SITTING UP IN BED, DAUGHTER TRISTIN AT . PT APPEARS TO BE PLEASANTLY CONFUSED. TRISTIN SEEMS VERY ATTENTIVE, PT SOFTLY SAID SHE WAS NOT HOT-HELD UP HER WATER CUP AND SAID IT WAS KEEPING HER COOL. EXTENDED A BLESSING, TRISTIN THANKED ME, PT SMILED. WILL FOLLOW NEEDED
--- NOTE | 2018-09-26 14:55 | NUR ---
PT RESTING IN BE, SLEEPING. PT MORE ALERT THIS AFTERNOON. PT ON ROOM AIR, LUNG SOUNDS CLEAR. BOWEL TONES ACTIVE, GOOD APPETITE, TOLERATING REGULAR DIET. PT WITH EDEMA TO BLE, UNCHANGED. NO ACUTE CHANGES. PT DENIES OTHER NEEDS AT THIS TIME. BED ALARM IN PLACE.
--- NOTE | 2018-09-26 16:19 | NUR ---
PT WITH COMMENTS ABOUT SUICIDE AND DYING, SUNCOOK SUICIDE SCREENING COMPLETED AND PLACED IN CHART. PT UNABLE TO COMPLETE SCREENING DUE TO CONFUSION. MD NOTIFIED. 1:1 SITTER NOT PLACED DUE TO CONFUSION, PT UNDER CLOSE OBSERVATION, BED ALARM AND CHAIR ALARM IN PLACE.
--- NOTE | 2018-09-26 17:01 | NUR ---
PT ASSISTED TO CHAIR FOR DINNER, CHAIR ALARM ON.
--- NOTE | 2018-09-26 17:13 | NUR ---
PT DROWSY THIS AM, MORE ALERT THIS AFTERNOON AND EVENING, CONFUSED WITH MOMENTS OF CLARITY. PT ON ROOM AIR, LUNG SOUNDS CLEAR. PT TOLERATING REGULAR DIET, GOOD APPETITE. IV FLUIDS INFUSING D5 1/2 NS +20MEQ K AT 100ML/HR, ROCEPHIN GIVEN. PT WITH COMPLAINT OF RIGHT HIP PAIN, GIVEN TYLENOL X1. PT SBA WITH WALKER, IMPULSIVE, BED/CHAIR ALARM. PT INCONT AT TIMES, VOIDING QS.
--- NOTE | 2018-09-26 18:25 | NUR ---
PATIENT HAS BEEN UP TO THE BATHROOM SEVERAL TIME THREW OUT THE DAY , 1PA WITH 4WW FROM BED TO RESTROOM .FROM BATH ROOM TO BED . PATIENT IS VERY CONFUSED. PATIENT IS NOW BACK INTO HER BED, BED ALARM ON, CALL LIGHT IN REACH.
--- NOTE | 2018-09-26 19:00 | NUR ---
BEDSIDE REPORT RECEIVED FROM JUAN LUIS YOU. PT RESTING IN BED, AWAKE, GIVEN WARM BLANKET REQUESTED. BED ALARM ON AT THIS TIME. IVF INFUSING ORDERED.
--- NOTE | 2018-09-26 20:55 | NUR ---
PATIENT IS RESTING IN BED WITH EYES CLOSED, RR 17. CALL LIGHT IN REACH. BED ALARM ON FOR SAFETY.
--- NOTE | 2018-09-26 21:40 | NUR ---
PT ASSESSMENT COMPLETE. PT DISORIENTED TO DATE, EVENT, REORIENTATION PROVIDED. PT RATES PAIN 10/10 IN RIGHT HIP. STRONG PEDAL PULSES,STATES NUMBNESS AND TINGLING BUE, BLE. PRN TYLENOL ADMINISTERED FOR PAIN, ICE PACK PLACED ON RIGHT HIP. NEW IV SITE PLACED BY SN EVANS. IVF INFUSING WNL. BED ALARM ON.
--- NOTE | 2018-09-26 21:57 | NUR ---
PT PULLED IV. NEW 22G IV STARTED IN LEFT FOREARM. RN ROMAN IN THE ROOM TO SUPERVISE. BED ALARM ON.
--- NOTE | 2018-09-26 22:22 | NUR ---
BED ALARM SOUNDING. PT ATTEMPTING TO GET OUT OF BED TO WALK TO WATER. WATER AT BEDSIDE REFILLED PER REQUEST. PT NOTED TO PULL IV AT THIS TIME. TIP INTACT. SN EVANS NOW PRESENT IN ROOM FOR IV START.
--- NOTE | 2018-09-26 23:32 | NUR ---
PT PULLED IV OUT. 22G RESTARTED IN RIGHT FOREARM. RN ROMAN IN THE ROOM TO SUPERVISE. PT MADHURI WELL.
--- NOTE | 2018-09-26 23:45 | NUR ---
PT CONTINUOUSLY PUSHING CALL LIGHT, PULLING AT IV SITE. PRN SONATA ADMINISTERED. BED ALARM ON. MARY LOU OCHOA REMAINS AT BEDSIDE FOR CLOSE MONITORING.
--- NOTE | 2018-09-27 01:28 | NUR ---
PT UP IN RESTROOM WITH MARY LOU OCHOA ASSIST. INCONTINENCE NOTED IN ATTENDS, DYSURIA AND FREQUENCY/URGENCY NOTED.
--- NOTE | 2018-09-27 01:46 | NUR ---
PT ASSESSMENT COMPLETE. PT RESTING IN BED AWAKE. NEW BAG IVF INFUSING WNL. PT PROVIDED WITH SLEEP MASK, ENCOURAGED TO GET REST. LIGHTS OFF IN ROOM. BED ALARM ON. CURTAIN OPEN FOR CLOSE MONITORING FOR PT SAFETY.
--- NOTE | 2018-09-27 04:00 | NUR ---
PT RESTING IN BED WITH EYES CLOSED. VISIBLE CHEST RISE EQUAL BILATERALLY. BED ALARM ON.
--- NOTE | 2018-09-27 05:51 | NUR ---
PT AWAKE FOR MOST OF SHIFT. SCHEDULED AND PRN SLEEP MEDICATION ADMINISTERED. PT OUT OF BED FOR MULTIPLE VOIDS, SOME INCONTINENCE IN ATTENDS. PT PULLED 2 IV SITES. NEW IV SITE INFUSING IVF WNL. FLOAT ELECTRIC MOTOR REPAIRER MONITORING PT CLOSELY FOR PT SAFETY THROUGHOUT SHIFT. BED ALARM IN PLACE. PT REMAINS DISORIENTED TO EVENT, DATE.
--- NOTE | 2018-09-27 06:06 | NUR ---
PT RESTING IN BED, BREATHING EQUAL AND NON-LABORED. RR 18. SLEEP MASK ON. IVF INFUSING ORDERED. BED ALARM ON.
--- NOTE | 2018-09-27 07:00 | NUR ---
BEDSIDE HANDOFF REPOR TECEIVED FROM SURVEY ENGINEER RN. PT SLEEPING, LEFT UNDISTURBED. BED ALARM IN PLACE.
--- NOTE | 2018-09-27 08:55 | NUR ---
PATIENT PULLED IV, DR. ANAYA NOTIFIED. OKAY TO LEAVE IV OUT.
[2018-09-27] MEDS ORDERED: CEPHALEXIN250 MG PO ×2 (09:08)
--- NOTE | 2018-09-27 09:50 | NUR ---
PT RESTINGIN BED. PT ALERT AND ORIENTED. PT DENIES PAIN. PT ON ROOM AIR, LUNG SOUNDS CLEAR. PT TOLERATING REGULAR DIET, GOOD APPETITE. PT ASSISTED TO BATRHOOM, SBA WITH WALKER, ASSISTED BACK TO BED. CMS INTACT, WITHOUT EDEMA. IV REMOVED BY PT. MORNING MEDICATIONS ADMINISTERED. PLAN FOR DISCHARGE, AWAITING DAUGHTER TO ARRIVE FOR DISCHARGE.
--- NOTE | 2018-09-27 11:21 | NUR ---
DELMAR SANCHEZO LILY ROSE.
== END 2018-09-27 11:05 | disposition home or self-care (01) ==
LOC: ED 14:11 → MS 14:14
PROVIDERS: ADMIT Internal Medicine
DX: N39.0 Urinary tract infection, site not specified (principal); G93.41 Metabolic encephalopathy; I10 Essential (primary) hypertension; E78.5 Hyperlipidemia, unspecified; F17.200 Nicotine dependence, unspecified, uncomplicated; F03.90 Unspecified dementia, unspecified severity, without behavioral disturbance, psychotic disturbance, mood disturbance, and anxiety; Z66 Do not resuscitate; Z88.5 Allergy status to narcotic agent; Z79.82 Long term (current) use of aspirin; Z79.899 Other long term (current) drug therapy
CPT/HCPCS: 36415; 70450; 80048; 80053; 81001; 85025; 87077; 87088; 87186; 96365; 96366; 96375; 99285-25; G0378; J0696; J1200; J7040

== ENCOUNTER 2018-09-29 10:17 | Emergency (ER) | payer MEDICARE, OTHER ==
[~2018-09-29] VITALS: Ht 157.5 cm; Wt 63.7 kg
--- OUTSIDE RECORDS SUMMARY | ~2018-09-29 | XMS | Clinical Summary ---
Demographics + + + | Address | [address] | | | [place] [address] | + + + | Home Phone | | + + + | Preferred Language | Unknown | + + + | Marital Status | | + + + | Taoist Affiliation | 1041 | + + + | Race | Unknown | + + + | Ethnic Group | Unknown | + + + Author + + + | Author | [facility] | | | and Agustín | + + + | Organization | [facility] | | | and Leandroana | + + + | Address | Unknown | + + + | Phone | Unavailable | + + + Support + + + + + | Name | Relationship | Address | Phone | + + + + + | Tristin See | ECON | [place] | | | | | [address] | | + + + + + Care Team Providers + +------+ + | Care Esl Teacher Name | Role | Phone | + [...] Right: | RTI | | 08/03/ | [id number] | | [id number]: Qty: 1 | | Spine | BIOLOGICS | | 2021 | | | on 04/25/2017 by Virginie, | | | INC - RBIO | | | /[id number] | | Ray Thrasher DO | | Lumbar | | | | 1-034 | | | | | | | | / | + +--------+--------+ +--------+--------+--------+ | Imp Spn Spcr 32x9mm - | Generi | Right: | [employer] - | | 04/17/ | [id number] | | Sn/AImplanted: Qty: 1 on | [...] Right: | [employer] - | | | [id number] | | [id number] - | c | Spine | MEDT | | | 5070 / | | [id number]: Qty: 2 on | | | | | | / | | 04/25/2017 by Ray Rachel | | Lumbar | | | | | | A, DO | | | | | | | + +--------+--------+ +--------+--------+--------+ | Graft Infuse Bone Kit Xs - | Graft | Right: | [employer] - | | 05/15/ | [id number] | | Sn/AImplanted: Qty: 1 on | | Spine | MEDT | | 2017 | 0 /N/A | | 04/25/2017 by Ray Rachel | | | | | | | | A, DO | | Lumbar | | | | /[id number] | | | | | | | | 29AAM | + +--------+--------+ +--------+--------+--------+ | Putty [place] 5cc Dbm - | Graft | Right: | [employer] - | | 07/30/ | 72698 | | [id number]: Qty: 1 | | Spine | MEDT | | 2020 | [id number] | | on 04/25/2017 by Virginie, | | | | | | 7019 | | Ray Thrasher DO | | Lumbar | | | | /N/A | + +--------+--------+ +--------+--------+--------+ | Screw 4.75 Xtb Rivera Mas | Screw | Right: | [employer] - | | | [id number] | | 6.5x55 - [id number]: | | Spine | MEDT | | | 13851 | | Qty: 4 on 04/25/2017 by | | | | | | / / | | Ray Rachel DO | | Lumbar | | | | | + +--------+--------+ +--------+--------+--------+ | Screw 4.75 Xtb Rivera Mas | Screw | Right: | [employer] - | | | [id number] | | 7.5x50 - [id number]: | | Spine | MEDT | | | [id number] | | Qty: 2 on 04/25/2017 by | | | | | | / / | | Ray Rachel DO | | Lumbar | | | | | + +--------+--------+ +--------+--------+--------+ | Screw Set Slra Perc Ti 4.75 - | Screw | Right: | [employer] - | | | [id number] | | [id number]: Qty: 6 | | Spine | MEDT [...] +--------+ +---------+--------+ | MEDICARE | MEDICA | [id number] | 09/13/18 | [phone] | | Medica | | | RE | | 92-Pre | 5 | | re | | | PART A | | sent | | | | | | AND B | | | | | | + +--------+ +--------+ +---------+--------+ | ALLEGIANCE | ALLEGI | [id number] | 05/16/19 | | | PPO | [...] +---------+--------+ | MEDICAID [place] | MEDICA | [id number] | | [phone] | | Medica | [...] Person | Self | [birth year] | [address] | | [place] | robb/Vicente | | 1935 | [phone] | [place] [address] | | | ana | | | 5 (Home) | | + +--------+ +--------+ + + Advance Directives Patient has advance care planning documents, and code status on file. For more information, please contact:[facility] [place] [address] + + + + + | Code [...]
--- OUTSIDE RECORDS SUMMARY | ~2018-09-29 | XMS | Clinical Summary ---
Demographics + + + | Address | [address] | | | [place] [address] | + + + | Home Phone | | + + + | Preferred Language | Unknown | + + + | Marital Status | | + + + | Baptism Affiliation | 1041 | + + + | Race | Unknown | + + + | Ethnic Group | Unknown | + + + Author + + + | Author | [facility] | | | and Agustín | + + + | Organization | [facility] | | | and Leandroana | + + + | Address | Unknown | + + + | Phone | Unavailable | + + + Support + + + + + | Name | Relationship | Address | Phone | + + + + + | Tristin See | ECON | [place] | | | | | [address] | | + + + + + Care Team Providers + +------+ + | Care Gripper Attacher Name | Role | Phone | + [...] Right: | RTI | | 08/03/ | [id number] | | [id number]: Qty: 1 | | Spine | BIOLOGICS | | 2021 | | | on 04/25/2017 by Virginie, | | | INC - RBIO | | | /[id number] | | Ray Thrasher DO | | Lumbar | | | | 1-034 | | | | | | | | / | + +--------+--------+ +--------+--------+--------+ | Imp Spn Spcr 32x9mm - | Generi | Right: | [employer] - | | 04/17/ | [id number] | | Sn/AImplanted: Qty: 1 on | [...] Right: | [employer] - | | | 468656 | | [id number] - | c | Spine | MEDT | | | 5070 / | | [id number]: Qty: 2 on | | | | | | / | | 04/25/2017 by Ray Rachel | | Lumbar | | | | | | A, DO | | | | | | | + +--------+--------+ +--------+--------+--------+ | Graft Infuse Bone Kit Xs - | Graft | Right: | [employer] - | | 05/15/ | [id number] | | Sn/AImplanted: Qty: 1 on | | Spine | MEDT | | 2017 | 0 /N/A | | 04/25/2017 by Ray Rachel | | | | | | | | A, DO | | Lumbar | | | | /[id number] | | | | | | | | 29AAM | + +--------+--------+ +--------+--------+--------+ | Putty [place] 5cc Dbm - | Graft | Right: | [employer] - | | 07/30/ | 90697 | | [id number]: Qty: 1 | | Spine | MEDT | | 2020 | [id number] | | on 04/25/2017 by Virginie, | | | | | | 7019 | | Ray Tharsher DO | | Lumbar | | | | /N/A | + +--------+--------+ +--------+--------+--------+ | Screw 4.75 Xtb Rivera Mas | Screw | Right: | [employer] - | | | 522109 | | 6.5x55 - [id number]: | | Spine | MEDT | | | [id number] | | Qty: 4 on 04/25/2017 by | | | | | | / / | | Ray Rachel DO | | Lumbar | | | | | + +--------+--------+ +--------+--------+--------+ | Screw 4.75 Xtb Rivera Mas | Screw | Right: | [employer] - | | | 247594 | | 7.5x50 - [id number]: | | Spine | MEDT | | | 10188 | | Qty: 2 on 04/25/2017 by | | | | | | / / | | Ray Rachel DO | | Lumbar | | | | | + +--------+--------+ +--------+--------+--------+ | Screw Set Slra Perc Ti 4.75 - | Screw | Right: | [employer] - | | | 607230 | | [id number]: Qty: 6 | | Spine | MEDT [...] +--------+ +---------+--------+ | MEDICARE | MEDICA | [id number] | 09/13/18 | [phone] | | Medica | | | RE | | 92-Pre | 5 | | re | | | PART A | | sent | | | | | | AND B | | | | | | + +--------+ +--------+ +---------+--------+ | ALLEGIANCE | ALLEGI | [id number] | 05/16/19 | | | PPO | [...] +---------+--------+ | MEDICAID [place] | MEDICA | [id number] | | [phone] | | Medica | [...] Person | Self | [birth year] | | [address] | | [place] | robb/Vicente | | 1935 | [phone] | [place] [address] | | | ana | | | 5 (Home) | | + +--------+ +--------+ + + Advance Directives Patient has advance care planning documents, and code status on file. For more information, please contact:[facility] [place] [address] + + + + + | Code [...]
[~2018-09-29 10:17] MED LIST changes: +CEPHALEXIN250 MG PO; +CITALOPRAM HBR10 MG PO; +CLEARLAX119 GM PO; +HYDROCHLOROTH12.5 MG PO; +IBUPROFEN400 MG PO; +LO-DOSE ASPIRIN81 M1 PO; +MELATONIN10 M2 PO; +MILK OF MA400 MG/5 M PO; +NORVASC10 MG PO; +OLOPATADINE HC2.5 ML OU; +PRESERVISION A1 EAC3 PO; +TESSALON PERLE100 MG PO
--- OUTSIDE RECORDS SUMMARY | 2018-09-29 10:20 | XMS ---
PreManage Notification: [facility] Security [employer] E[employer]ctor Events No recent Security Events currently on file CRITERIA MET - [facility] - 2 Visits in 30 Days CARE PROVIDERS Angely Marinelli Authorization Specialist/Vice President Of Marketing 06/10/2017-Current PHONE: [phone] [facility] Case or [employer] Dealer 05/12/2017-Current [facility] PHONE: [phone] DR OMKAR GUADALUPE Primary Care Current PHONE: [phone] Angely Marinelli Primary Care 06/10/2017-Current PHONE: [phone] Ran Rogel Primary Care Current PHONE: Unknown Kosta Phelps Current Orthopedic Surgery \[facility] PHONE: Unknown Alan has no Care Guidelines for this patient. Lona VISIT COUNT (12 MO.) 2 GLYNN Yates TOTAL 2 NOTE: Visits indicate total known visits. ED/UCC VISIT TRACKING (12 MO.) 09/29/2018 10:18 [facility] Waller [place] TYPE: Emergency COMPLAINT: - URINE PROBLEM 09/25/2018 14:13 [facility] Wall[facility] [place] TYPE: Emergency COMPLAINT: - FALL/ POSSIBLE HEAD INJURY INPATIENT VISIT TRACKING (12 MO.) 09/25/2018 14:14 [facility] Wall[facility] [place] TYPE: Observation COMPLAINT: - ACUTE METABOLIC ENCEPHALOPATHY DIAGNOSES: - Urinary tract infection, site not specified - Unspecified dementia without behavioral disturbance - Other care home (current) drug therapy - snf (current) use of aspirin - Do not resuscitate - Allergy status to narcotic agent status - Essential (primary) hypertension - Metabolic encephalopathy - Nicotine dependence, unspecified, uncomplicated - Disorientation, unspecified - Hyperlipidemia, unspecified [email or web address]
[2018-09-29] MEDS ORDERED: HALOPERIDOL2 MG PO (13:57)
--- NOTE | 2018-10-02 11:13 | NUR ---
RECIEVED SEVERAL PHONE CALLS FROM PT DAUGHTER TRISTIN. ATTEMPTED TO RETURN CALLS A COUPLE OF TIMES, UNABLE TO LEAVE MESSAGES. FINALLY TRISTIN ANSWERED AT 1100 AND GAVE PERMISSION FOR RECORDS TO BE RELEASE TO [facility] FOR CONTINUITY OF CARE SHE IS TRYING TO MOVE HER TO [facility]. ASKED QUESTIONS REGARDING WHAT SHE HAS TO DO WITH MEDICARE TO MAKE THIS HAPPEN, INFORMED HER TO CONTACT THE PATIENTS MEDICAL COMMUNICATION SPECIALIST AT [facility] AND GO FROM THERE. RECIEVED FAX CONFIRMATION ON CHART NOTES SENT TO [facility]. BEFORE I SENT CHART NOTES TO [facility], I TALKED WITH TANYA AT [facility] AND HE STATED THEY WOULD APPRECIATE HAVING THE RECENT NOTES. I FAXED CHART NOTES FROM 09/29/18 ER VISIT. ALSO SENT RECENT OBS VISIT FROM 09/25/18 TO 09/27/18 INCLUDING FACE SHEET, ER NOTES AND SUMMARY, H AND P, PROG NOTES, DC SUMMARY AND PACKET.
== END 2018-09-29 14:20 | disposition home or self-care (01) ==
LOC: ED 10:17
DX: F03.91 Unspecified dementia, unspecified severity, with behavioral disturbance (principal); N39.0 Urinary tract infection, site not specified; I10 Essential (primary) hypertension; E78.5 Hyperlipidemia, unspecified; F17.200 Nicotine dependence, unspecified, uncomplicated; Z90.710 Acquired absence of both cervix and uterus; Z88.5 Allergy status to narcotic agent; Z79.82 Long term (current) use of aspirin; Z79.899 Other long term (current) drug therapy
CPT/HCPCS: 80053; 85025; 99285